=== PATIENT | female | born 1955 | race Caucasian/White ===

== ENCOUNTER → 2016-09-20 | Outpatient (CLI) | payer OTHER ==
[~2016-09-20] MED LIST: CLX20 PO; GABA-113 PO
[2016-09-20 09:33] LABS: BASO % 0.5 %; BASO ABS # 0.03 K/uL (0-0.2); COMPLETE YES; EOS % 4.4 %; HEMATOCRIT 40.6 % (37-47); IG% 0.7 %; LYMPH % 23.7 %; LYMPH ABS # 1.34 K/uL (1.2-3.4); MEAN CELL VOLUME 86.8 fL (80-100); MEAN CORPUSCULAR HEMOGLOBIN 29.9 pg (25-34); MEAN CORPUSCULAR HGB CONC 34.5 g/dl (32-36); MEAN PLATELET VOLUME 10.2 fL (7.4-10.4); NEUT % 62.7 %; PLATELET COUNT 231 K/uL (130-400); RED BLOOD COUNT 4.68 M/uL (4.2-5.4); WHITE BLOOD COUNT 5.66 K/uL (4.8-10.8)
[2016-09-20 10:04] LABS: ALT/SGPT 20 U/L (12-78); BLOOD UREA NITROGEN 26 mg/dl (7-18); BUN/CREATININE RATIO 32.9 (10-20); CARBON DIOXIDE 26 mmol/L (21-32); CHLORIDE 109 mmol/L (98-107); CHOLESTEROL 167 mg/dl (0-200); CREATININE 0.79 mg/dl (0.60-1.20); GLUCOSE 90 mg/dl (70-99); POTASSIUM 4.1 mmol/L (3.5-5.1); SODIUM 146 mmol/L (136-145); TRIGLYCERIDES 70 mg/dl (0-150); VERY LOW DENSITY LIPOPROT CALC 14 mg/dl
[2016-09-20 10:14] LABS: ALB/GLOB RATIO 1.4 (0.9-2); ALKALINE PHOSPHATASE 103 U/L (45-117); AST/SGOT 16 U/L (15-37); CHOLESTEROL/HDL RATIO 3.3; FERRITIN 50.1 ng/ml (8.0-388.0); HDL CHOLESTEROL 51 mg/dl; LDL CHOLESTEROL CALCULATED 102 mg/dl
== END | disposition home or self-care (01) ==
LOC: C.LAB 06:19
PROVIDERS: ATTEND Family Medicine
DX: N20.0 Calculus of kidney (principal); Z13.220 Encounter for screening for lipoid disorders; G25.81 Restless legs syndrome; E55.9 Vitamin D deficiency, unspecified

== ENCOUNTER 2017-08-24 08:50 | Emergency (ER) | payer OTHER ==
[~2017-08-24] VITALS: Ht 160 cm; Wt 76.2 kg
[2017-08-24 08:56] VITALS: TEMP 36.9; Ht 160 cm; Wt 76.2 kg
[2017-08-24] MEDS ORDERED: CITA20TA4 PO (09:15)
[2017-08-24] MEDS ORDERED: ROPI0.5T15 PO (09:15)
[2017-08-24] MEDS ORDERED: ERYTHROMYCIN OP OINT 5 MG/GM 3.5 GM TUBE OP ONE (09:45)
[2017-08-24 09:51] VITALS: BP 125/66; PULSE 73; O2SAT 95
--- NOTE | 2017-08-24 17:22 | EMERGENCY ROOM VISIT NOTE ---
History First contact with patient: : Chief Complaint: EYE ASSESSMENT Stated Complaint: DOUBLE EYE INFECTION History of Present Illness The patient is a 61 year old white female who presents to the Emergency Room with complaints of redness and itching of both eyes. It has an present for several days. She denies any pain. She has noted increasing swelling in her eyelids. She denies contact with any makeup. No known chemical exposure. She denies putting anything around her eyes such as new facial cream. No change in vision. No other complaints. Her accompanies her today. Denies any tearing or drainage. Review of Systems REVIEW OF SYSTEM: HEENT: No dizziness, hearing loss, or tinnitus. There is no difficulty swallowing and no oral lesions are present. PULMONARY: No cough, shortness of breath, sputum production or hemoptysis. CARDIOVASCULAR: No chest pain, palpitations, shortness of breath or peripheral edema. GASTROINTESTINAL: No diarrhea, constipation, nausea, vomiting, or abdominal pain. GENITOURINARY: No dysuria, frequency, urgency or nocturia. NEUROLOGIC: No weakness, muscle tenderness, epilepsy or history of neurological problems. MUSCULOSKELETAL: No history of joint tenderness/swelling. No history of arthritis or arthralgias. SKIN: No rashes or lesions. ENDOCRINE: No history of diabetes, thyroid disorders, or abnormal hair growth. Past Medical/Surgical History Previous surgeries: None Medical history: Significant for anxiety and restless legs Family History Noncontributory. Social History Smoking Status: Never Smoker Smokeless Tobacco Use: No Alcohol Use: none Drug Use: none Marital Status: Housing Status: lives with family Occupation Status: employed Current/Historical Medications Scheduled Citalopram Hydrobromide (Citalopram Hydrobromide), 20 MG PO DAILY Gabapentin (Neurontin), 150 MG PO BID Ropinirole (Requip), 0.5 MG PO TID Physical Exam Vital Signs Date Time Temp Pulse Resp B/P (MAP) Pulse Ox O2 Delivery O2 Flow Rate FiO2 08/24/17 09:51 73 16 125/66 95 Room Air 08/24/17 08:56 36.9 82 18 112/72 95 Room Air Physical Exam Gen.: Well-developed, well-nourished, middle-aged white female, in no acute distress. Sitting on a bed. Alert and oriented. Skin:Warm and dry with good turgor. Mild redness present on her upper and lower eyelids. They're also mildly edematous bilaterally. No ecchymosis. The patient is not diaphoretic. No abrasions. HEENT: Normocephalic atraumatic. Eyes PERRLA, EOMI. No conjunctiva or scleral injection. Nares patent bilaterally without turbinate enlargement. No significant drainage. No epistaxis. Oropharynx without erythema or exudate. Uvula midline, oral mucosa moist. No lesions present. Eyes were stained with fluorescein. Slit-lamp exam was performed. No uptake on the corneas. No evidence of foreign body. No drainage or mucopurulent crusting present. Medical Decision & Procedures Medications Administered Medications (Trade) Dose Ordered Sig/Dean Route Start Time Stop Time Status Last Admin Dose Admin Erythromycin (Erythromycin Oph Oint) 1 appln NOW ONCE OP 08/24/17 09:45 08/24/17 09:46 DC 08/24/17 09:49 1 APPLN Erythromycin ointment ED Course Patient was educated regarding today's findings. Conservative care measures were discussed. Slit-lamp exam was performed. She was reassured that I find no evidence for corneal abrasion or ulceration. No evidence for periorbital cellulitis. I think that she has a slight blepharitis. Possibility of allergic reaction was also discussed. He was prescribed erythromycin ointment to be used 3 times a day 4 days. She may also use Benadryl 25 mg every 6 hours and Zantac 150 mg once a day. This will help alleviate her itching and redness. Follow-up with her PCP as needed. Return to the ED for any worsening of symptoms. Medical Decision Possibility of blepharitis, corneal abrasion, corneal ulceration, conjunctivitis , and periorbital cellulitis was considered. Medication Reconcilliation Current Medication List: was personally reviewed by me Blood Pressure Screening Patient's blood pressure: Normal blood pressure Impression Primary Impression: Blepharitis of both eyes Departure Information Dispostion Home / Self-Care Condition GOOD Forms WORK / SCHOOL INSTRUCTIONS, HOME CARE DOCUMENTATION FORM, MOTRIN USE, TYLENOL USE, IMPORTANT VISIT INFORMATION Patient Instructions [facility], ED Inflammation Eyelid Additional Instructions Cool compresses to the eyes several times per day to reduce edema Apply erythromycin ointment to the eyelids 3 times a day 4 days Have your eyes reevaluated if pain develops or if significant drainage develops Tylenol and Motrin every 6 hours as needed for discomfort Benadryl 25 mg every 6 hours and Zantac 150 mg once a day will reduce redness and itching-take these until symptoms improve Avoid makeup on the eyelids until symptoms resolve
== END 2017-08-24 10:06 | disposition home or self-care (01) ==
LOC: C.EDB 08:52
DX: H01.006 Unspecified blepharitis left eye, unspecified eyelid (principal); H01.003 Unspecified blepharitis right eye, unspecified eyelid

== ENCOUNTER 2020-09-25 10:43 | Inpatient (IN) ==
[2020-09-25] MEDS ORDERED: REMDESIVIR 200 MG in SODIUM CHLORIDE 0.9% 210 ML IV STA (11:23)
[2020-09-25] MEDS ORDERED: SODIUM CHLORIDE 0.9% 1000ML 1,000 ML IV SCH (11:30)
[2020-09-25] MEDS ORDERED: SODIUM CHLORIDE 0.9% 10ML FLUSH IV SCH (11:30)
--- NOTE | 2020-09-25 11:34 | Emergency Department Note ---
History of Present Illness General Chief complaint: Illness Stated complaint: COVID +,SEVERE SOB Time Seen by Provider: 09/25/20 11:07 Source: patient Mode of arrival: ambulatory Limitations: no limitations History of Present Illness Provider complaint: Shortness of breath Maximum Pain Intensity: 3 This is a 65-year-old female who presents to the ED with a chief complaint of shortness of breath. The patient initially had symptoms about 8 or 9 days ago with loss of taste and smell as well as a cough. The patient's Covid test came up positive. She was seen a second time in the emergency department by myself about several days ago. At that time her oxygen saturations were fine. She states that last night she developed increased shortness of breath and difficulty in breathing. She came to the ED for reevaluation today. Her symptoms are worse with exertion. She denies any other complaints. Home Medications Medication Instructions Recorded Confirmed Type calcium carbonate [Calcium 600] 600 mg PO QAM 08/10/18 09/25/20 History citalopram 10 mg tablet 10 mg PO DAILY #30 tab 05/19/20 09/25/20 Rx ropinirole 1 mg tablet 1 mg PO BID #180 tab 05/19/20 09/25/20 Rx cholecalciferol (vitamin D3) 10 2,000 unit PO QAM #90 cap 05/25/20 09/25/20 Rx mcg (400 unit) capsule aspirin 81 mg PO DAILY 09/18/20 09/25/20 History dexamethasone 6 mg PO DAILY #6 tab 09/18/20 09/25/20 Rx acetaminophen [Tylenol Extra 1,000 mg PO Q6H PRN 09/21/20 09/25/20 History Strength] benzonatate [Tessalon Perles] 100 mg PO Q6H PRN #20 cap 09/21/20 09/25/20 Rx ibuprofen 400 mg PO Q6H PRN 09/21/20 09/25/20 History Allergies Allergy/AdvReac Type Severity Reaction Status Date / Time Penicillins Allergy Mild FEVER Verified 09/25/20 12:05 Past Med/Surg History Medical History Blepharitis of both eyes RESOLVED Depression Glaucoma Nephrolithiasis Restless leg syndrome Vitamin D deficiency Surgical History History of cataract surgery right History of dilatation and curettage History of right breast biopsy benign Family History Grandmother (Maternal) Diabetes Brother Diabetes Sister Diabetes Other No family history of adverse response to anesthesia Social History Smoking Status: Never smoker Second Hand Exposure: No (as a child); Hx Alcohol Use: No Hx Substance Use: No Preferred Language: Amharic Communication Ability: Effective Visual Impairment: Limited Hearing Ability: Normal Compressor Stations Superintendent Required: No Beliefs That Will Affect Care: None marital status: Current Living Situation: Spouse current occupational status: employed Feels Safe at Home: Yes Childhood Exposure to Second-Hand Smoke: Yes caffeine: Yes Dental Care, Regularly: No Physical Activity Frequency: Does not Exercise Seatbelt Use: always Sunscreen Use: No Assistive Devices: Glasses Review of Systems A total of 10 systems reviewed and were otherwise negative Physical Exam Vital Signs Vital Signs - 24 hr 09/25/20 10:48 Temperature 36.7 C Temperature Source Oral Pulse Rate 78 Pulse Rhythm Regular Pulse Strength Normal Respiratory Rate 24 Respiratory Effort / Characteristics Non-Labored Respiratory Depth Normal Respiratory Pattern Regular Blood Pressure 113/70 Blood Pressure Mean 84 Pulse Oximetry 86 L Oxygen Delivery Method Room Air Sepsis Recent Fever Within 48 Hours No Sepsis New/Unexplained Change in Mental Status N/A Sepsis Action Taken by Nursing No Action Required CONSTITUTIONAL/VITAL SIGNS: Reviewed / noted above. GENERAL: Non-toxic in appearance. INTEGUMENTARY: Warm, dry, and [place]. HEAD: Normocephalic. EYES: without scleral icterus or trauma. ENT/OROPHARYNX: clear and moist. LYMPHADENOPATHY/NECK: Is supple without lymphadenopathy or meningismus. RESPIRATORY: Lungs clear and equal. CARDIOVASCULAR: Regular rate and rhythm. GI/ABDOMEN: Soft and nontender. No organomegaly or pulsatile mass. No rebound or guarding. Normal bowel sounds. EXTREMITIES: Warm and well perfused. BACK: No CVA tenderness. NEUROLOGICAL: Intact without focal deficits. PSYCHIATRIC: normal affect. MUSCULOSKELETAL: Normally developed with good muscle tone. TRIAGE NURSING DOCUMENTATION REVIEWED. Course Administered Medications Dexamethasone 6 mg/ Syringe 1.5 mls @ 1 mls/min IV DAILY JULIO Stop: 10/05/20 11:29 Last Admin: 09/25/20 12:15 Dose: 1 mls/min Documented by: [id number] Discontinued Medications Sodium Chloride (Nss 1000ml) 1,000 mls @ 999 mls/hr IV .Q1H1M JULIO Stop: 09/25/20 12:30 Last Admin: 09/25/20 12:14 Dose: 999 mls/hr Documented by: [id number] Remdesivir 200 mg/ Sodium (Chloride) 250 mls @ 125 mls/hr IV ONE STA; Protocol Stop: 09/25/20 13:22 Last Admin: 09/25/20 12:15 Dose: 125 mls/hr Documented by: [id number] Medical Decision Making Differential Diagnosis The differential was considered includes acute myocardial infarction, acute coronary syndrome, myocarditis, pericarditis, pericardial effusions /tamponad, esophageal perforation, pulmonary embolism, pneumonia, pneumothorax, cardiomyopathy, congestive heart, anemia , COPD/asthma exacerbation. Medical Records Attestation: I reviewed the patient's medical records. Home Medications Current Medication List: was personally reviewed by me Laboratory Data Attestation: I reviewed the patient's lab results. Result diagrams: 09/25/20 11:41 09/25/20 11:41 Lab Results 09/25/20 09/25/20 09/25/20 Range/Units 11:41 11:41 11:41 WBC 7.96 (4.8-10.8) K/uL RBC 4.66 (4.2-5.4) M/uL Hgb 13.9 (12.0-16.0) g/dL Hct 40.9 (37-47) % MCV 87.8 (80-100) fL MCH 29.8 (25-34) pg MCHC 34.0 (32-36) g/dL RDW Std Deviation 41.2 (36.4-46.3) fL RDW Coeff of Rosa 12.9 (11.5-14.5) % Plt Count 233 (130-400) K/uL MPV 10.5 H (7.4-10.4) fL Neutrophils % (Manual) 88.6 % Lymphocytes % (Manual) 7.0 % Monocytes % (Manual) 2.6 % Metamyelocytes % (Man) 0.9 % Plasma Cell % (Manual) 0.9 % Neutrophils # (Manual) 7.05 H (1.4-6.5) K/uL Total Absolute Neuts 7.05 H (1.4-6.5) K/uL Lymphocytes # (Manual) 0.56 L (1.2-3.4) K/uL Total Abs Lymphocytes 0.63 L (1.2-3.4) K/uL Monocytes # (Manual) 0.21 (0.11-0.59) K/uL Metamyelocytes # (Man) 0.07 H (0-0) K/uL Plasma Cell # (Manual) 0.07 H (0-0) K/uL PT 10.9 (9.0-12.0) Seconds INR 1.0 (0.9-1.1) APTT 25.4 (21.0-31.0) Seconds PTT Ratio 0.9 Sodium 141 (136-145) mmol/L Potassium 3.4 L (3.5-5.1) mmol/L Chloride 105 (98-107) mmol/L Carbon Dioxide 28 (21-32) mmol/L Anion Gap 9.0 (3-11) BUN 25 H (7-18) mg/dl Creatinine 0.94 (0.6-1.2) mg/dl Est Cr Clr Drug Dosing 56.3 ml/min Est GFR ( Amer) 72.8 Est GFR (Non-Af Amer) 62.8 BUN/Creatinine Ratio 26.8 H (10-20) Glucose 136 H (70-99) mg/dl Lactate (0.4-2.0) mmol/L Calcium 9.6 (8.5-10.1) mg/dl Magnesium 2.4 (1.8-2.4) mg/dl Total Bilirubin 0.8 (0.2-1) mg/dl AST 60 H (15-37) U/L ALT 94 H (12-78) U/L Alkaline Phosphatase 77 (45-117) U/L Troponin I < 0.015 (0-0.045) ng/ml Total Protein 6.8 (6.4-8.2) gm/dl Albumin 2.8 L (3.4-5.0) gm/dl Globulin 4.0 (2.5-4.0) gm/dl Albumin/Globulin Ratio 0.7 L (0.9-2) 09/25/20 Range/Units 11:41 WBC (4.8-10.8) K/uL RBC (4.2-5.4) M/uL Hgb (12.0-16.0) g/dL Hct (37-47) % MCV (80-100) fL MCH (25-34) pg MCHC (32-36) g/dL RDW Std Deviation (36.4-46.3) fL RDW Coeff of Rosa (11.5-14.5) % Plt Count (130-400) K/uL MPV (7.4-10.4) fL Neutrophils % (Manual) % Lymphocytes % (Manual) % Monocytes % (Manual) % Metamyelocytes % (Man) % Plasma Cell % (Manual) % Neutrophils # (Manual) (1.4-6.5) K/uL Total Absolute Neuts (1.4-6.5) K/uL Lymphocytes # (Manual) (1.2-3.4) K/uL Total Abs Lymphocytes (1.2-3.4) K/uL Monocytes # (Manual) (0.11-0.59) K/uL Metamyelocytes # (Man) (0-0) K/uL Plasma Cell # (Manual) (0-0) K/uL PT (9.0-12.0) Seconds INR (0.9-1.1) APTT (21.0-31.0) Seconds PTT Ratio Sodium (136-145) mmol/L Potassium (3.5-5.1) mmol/L Chloride (98-107) mmol/L Carbon Dioxide (21-32) mmol/L Anion Gap (3-11) BUN (7-18) mg/dl Creatinine (0.6-1.2) mg/dl Est Cr Clr Drug Dosing ml/min Est GFR ( Amer) Est GFR (Non-Af Amer) BUN/Creatinine Ratio (10-20) Glucose (70-99) mg/dl Lactate 3.7 H* (0.4-2.0) mmol/L Calcium (8.5-10.1) mg/dl Magnesium (1.8-2.4) mg/dl Total Bilirubin (0.2-1) mg/dl AST (15-37) U/L ALT (12-78) U/L Alkaline Phosphatase (45-117) U/L Troponin I (0-0.045) ng/ml Total Protein (6.4-8.2) gm/dl Albumin (3.4-5.0) gm/dl Globulin (2.5-4.0) gm/dl Albumin/Globulin Ratio (0.9-2) Imaging Data Radiologist's Impression: XR chest 1V portable CLINICAL HISTORY: Sepsis. COMPARISON STUDY: Chest radiograph September 18, 2020. FINDINGS: Lung volumes are normal. There is no pneumothorax or pleural effusion. Moderate multifocal bilateral airspace opacities are present. Enlargement of the cardiac silhouette is noted. No evidence for pulmonary edema. IMPRESSION: Moderate multifocal bilateral airspace opacities consistent with an infectious process. ECG Data Attestation: I personally reviewed and interpreted this ECG as follows: Indication: + weakness Rate (beats per minute): 67 Rhythm: + normal sinus ECG ST segments: no ST elevation ECG Findings: no PVCs MDM Narrative Patient presents with increased shortness of breath and was diagnosed with Covid about a week or so ago. She is found today to be hypoxic on room air with oxygen saturations of 86%. Vital signs are otherwise stable. Her exam was relatively unremarkable. She does not appear to be in any distress while resting in bed. Lungs are clear on auscultation. Chest x-ray is suggestive of a bilateral pneumonia. Twelve-lead EKG shows a normal sinus rhythm at 67 without ischemic changes. CBC was unremarkable. Chemistry panel was unremar kable. Lactate was elevated 3.7. Troponin is negative. The patient was treated with IV fluids, IV remdesivir as well as IV Decadron. She will be seen by the hospitalist for further inpatient evaluation and care. Impression & Plan Hypoxia, COVID-19 Discharge Plan Visit Data Chief Complaint: Illness Stated Complaint: COVID +,SEVERE SOB ED Provider: Rio Macario Discharge Problem: Hypoxia, COVID-19 Patient Disposition: Admitted As Inpatient Forms Stand Alone Forms: My [facility] [employer] Prescriptions Prescriptions: No Action cholecalciferol (vitamin D3) [Vitamin D3] 10 mcg (400 unit) capsule 2,000 unit PO QAM Qty: 90 RF: 3 ropinirole 1 mg tablet 1 mg PO BID Qty: 180 RF: 3 citalopram 10 mg tablet 10 mg PO DAILY Qty: 30 RF: 2 calcium carbonate [Calcium 600] 600 mg calcium (1,500 mg) Tablet 600 mg PO QAM RF: 0 aspirin 81 mg Tablet,Delayed Release (Dr/Ec) 81 mg PO DAILY RF: 0 dexamethasone 6 mg tablet 6 mg PO DAILY Qty: 6 RF: 0 acetaminophen [Tylenol Extra Strength] 500 mg Tablet 1,000 mg PO Q6H PRN (Reason: fever/pain) RF: 0 ibuprofen 200 mg Tablet 400 mg PO Q6H PRN (Reason: fever/pain) RF: 0 benzonatate [Tessalon Perles] 100 mg capsule 100 mg PO Q6H PRN (Reason: cough) Qty: 20 RF: 0 Referrals Referrals: Stanley Coleman DO [Primary Care Provider] -
[2020-09-25 11:58] LABS: Hematocrit (blood only) 40.9 % (37-47); Hemoglobin 13.9 g/dL (12.0-16.0); Mean Corpuscular Hemoglobin 29.8 pg (25-34); Mean Corpuscular Volume 87.8 fL (80-100); Mean Platelet Volume 10.5 fL (7.4-10.4); Platelet Count 233 K/uL (130-400); RDW Coefficient of Variation 12.9 % (11.5-14.5); RDW Standard Deviation 41.2 fL (36.4-46.3); Red Blood Count 4.66 M/uL (4.2-5.4); White Blood Count 7.96 K/uL (4.8-10.8)
[2020-09-25 12:14] LABS: Partial Thromboplastin Ratio 0.9; Partial Thromboplastin Time 25.4 Seconds (21.0-31.0); Prothrombin Time 10.9 Seconds (9.0-12.0)
[2020-09-25] MEDS: dexAMETHasone 6 MG in SYRINGE 0 ML IV SCH (12:15)
[2020-09-25 12:16] LABS: ALC (manual) 0.63 K/uL (1.2-3.4); ANC (manual) 7.05 K/uL (1.4-6.5); Lymphocytes # (manual) 0.56 K/uL (1.2-3.4); Metamyelocytes # (manual) 0.07 K/uL (0-0); Metamyelocytes % (manual) 0.9 %; Monocytes # (manual) 0.21 K/uL (0.11-0.59); Monocytes % (manual) 2.6 %; Neutrophils # (manual) 7.05 K/uL (1.4-6.5); Neutrophils % (manual) 88.6 %; Plasma Cells # (manual) 0.07 K/uL (0-0); Plasma Cells % (manual) 0.9 %
[2020-09-25 12:17] LABS: Alanine Aminotransferase 94 U/L (12-78); Albumin Level 2.8 gm/dl (3.4-5.0); Aspartate Aminotransferase 60 U/L (15-37); BUN Creatinine Ratio 26.8 (10-20); Blood Urea Nitrogen 25 mg/dl (7-18); Calcium 9.6 mg/dl (8.5-10.1); Carbon Dioxide 28 mmol/L (21-32); Chloride 105 mmol/L (98-107); Creatinine Clr Calc Pharmacy 56.3 ml/min; Est GFR (African American) 72.8; Est GFR (Non-African American) 62.8; Glucose 136 mg/dl (70-99); Magnesium 2.4 mg/dl (1.8-2.4); Potassium 3.4 mmol/L (3.5-5.1); Sodium 141 mmol/L (136-145)
[2020-09-25 12:22] LABS: Albumin Globulin Ratio 0.7 (0.9-2); Alkaline Phosphatase 77 U/L (45-117); Bilirubin,Total 0.8 mg/dl (0.2-1); Total Protein 6.8 gm/dl (6.4-8.2); Troponin I < 0.015 ng/ml (0-0.045)
--- NOTE | 2020-09-25 12:36 | XRay Report ---
XR chest 1V portable CLINICAL HISTORY: Sepsis. COMPARISON STUDY: Chest radiograph September 18, 2020. FINDINGS: Lung volumes are normal. There is no pneumothorax or pleural effusion. Moderate multifocal bilateral airspace opacities are present. Enlargement of the cardiac silhouette is noted. No evidence for pulmonary edema. IMPRESSION: Moderate multifocal bilateral airspace opacities consistent with an infectious process. ACT 112: Negative or not required by law. Electronically signed by: Bill Sosa M.D. 09/25/2020 12:34 PM
--- NOTE | 2020-09-25 13:08 | History & Physical Report ---
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 - Will continue on remdesivir, tessalon pearls, tylenol prn, flutter, incentive spirometry - Continue supportive care with proning when able - CXR reviewed - showing multifocal bilateral airspace opacities - Isolation precautions- will need to discuss with the patient regarding her and how he should be quarantining herself - Continue Remdisivir 100 mg IV daily for 4 additional days (she received 200 mg dose in ER) - Continue Decadron 6 mg IV daily for 10 days - Consented for Convalescent Plasma, but will hold off at this time, as she is 10 days post initial symptoms (2) Hypoxia: - 86 % on room air upon admission, improved with supplemental O2, wean as able. (3) Hypokalemia: - 3.4 on admission, replace orally for now (4) Elevated transaminase level: - AST = 60, ALT = 94 (5) Blepharitis of both eyes: - Hx of such (6) Restless leg syndrome: - Hx of such, stable (7) Depression: - Cont citalopram 10 mg daily (8) Vitamin D deficiency: - Continue supplementation DVT ppx: lovenox subq CODE: FULL code Dispo: From home, likely to remain in the hospital x 2 days History of Present Illness Primary Care Provider: Stanley Coleman DO This is a 65 yo F with PMHx of nephrolithiasis, RLS, Vit D deficiency, depression and glaucoma, blepharitis of both eyes, who presents with worsening shortness of breath today. She was seen in the ER on 09/21/20 with flulike sx. She had been tested for COVID on 09/18 which was sent out, and resulted on 09/21 as positive and at that point was short of breath but not hypoxic. She was dis charged home from the ER after findings of pneumonia on CXR, and was given PO dexamethasone x 6 days and tessalon pearls for cough. She now presents today with worsening shortness of breath, fatigue, and was found to be hypoxic with O2 sats of 86% on room air. Pt has been placed on 3L via NC and has improved saturations in the 90s. Pt admits to cough but denies loss of taste or smell, fever, chills, myalgia. Allergies Allergy/AdvReac Type Severity Reaction Status Date / Time Penicillins Allergy Mild FEVER Verified 09/25/20 12:05 Home Medications Medication Instructions Recorded Confirmed Type calcium carbonate [Calcium 600] 600 mg PO QAM 08/10/18 09/25/20 History citalopram 10 mg tablet 10 mg PO DAILY #30 tab 05/19/20 09/25/20 Rx ropinirole 1 mg tablet 1 mg PO BID #180 tab 05/19/20 09/25/20 Rx cholecalciferol (vitamin D3) 10 2,000 unit PO QAM #90 cap 05/25/20 09/25/20 Rx mcg (400 unit) capsule aspirin 81 mg PO DAILY 09/18/20 09/25/20 History dexamethasone 6 mg PO DAILY #6 tab 09/18/20 09/25/20 Rx acetaminophen [Tylenol Extra 1,000 mg PO Q6H PRN 09/21/20 09/25/20 History Strength] benzonatate [Tessalon Perles] 100 mg PO Q6H PRN #20 cap 09/21/20 09/25/20 Rx ibuprofen 400 mg PO Q6H PRN 09/21/20 09/25/20 History Past Med/Surg History Medical History Blepharitis of both eyes RESOLVED Depression Glaucoma Nephrolithiasis Restless leg syndrome Vitamin D deficiency Surgical History History of cataract surgery right History of dilatation and curettage History of right breast biopsy benign Family History (Updated 09/25/20 @ 13:47 by Gerry Barcenas DO) Grandmother (Maternal) Diabetes Brother Diabetes Sister Diabetes Breast cancer Other No family history of adverse response to anesthesia Social History Smoking Status: Never smoker Second Hand Exposure: No (as a child); Hx Alcohol Use: No Hx Substance Use: No Preferred Language: Slovenian Communication Ability: Effective Visual Impairment: Limited Hearing Ability: Normal Director Epidemiology Required: No Beliefs That Will Affect Care: None marital status: Current Living Situation: Spouse current occupational status: employed Feels Safe at Home: Yes Childhood Exposure to Second-Hand Smoke: Yes caffeine: Yes Dental Care, Regularly: No Physical Activity Frequency: Does not Exercise Seatbelt Use: always Sunscreen Use: No Assistive Devices: Glasses Review of Systems Review of Systems: All systems reviewed & are unremarkable except as noted in HPI & below Physical Exam Constitutional: + ill appearing; no acute distress Eyes: + anicteric sclerae ENMT: external ear and nose normal, oropharynx normal Neck: trachea midline, no thyromegaly Respiratory: no respiratory distress and no labored breathing Auscultation: + crackles (bilateral bases) On supplemental oxygen via Nasal canula Cardiovascular: RRR, no murmur, no edema Gastrointestinal (Abdomen): normal bowel sounds, soft, nontender, no hepatosplenomegaly Skin: no rashes, warm and dry Psychiatric: A+Ox3, euthymic affect Results & Data Results & Data ([facility]) Vital Signs (Past 12 Hours) Vital Signs Temp Pulse Resp BP Pulse Ox 09/25/20 10:48 36.7 C 78 24 113/70 86 L Supervising Physician Co-Signing Physician Notes I have seen and examined the patient independently, and agree with the above noted plan by Ashley Buck, PAC ROS and PE are documented as above by myself as PA did not enter room due to COVID-19 Plan as above PG Care Time/CCT Total # of Minutes Spent Total Time Spent with Patient: Total time spent is greater than 50% in coordination of care (as documented) at patient's floor/unit and/or counseling patient: Coding Level of Care Code 48530 OBS Care - Level 3 Diagnoses COVID-19 U07.1 Hypoxia R09.02 Hypokalemia E87.6 Elevated transaminase level R74.01 Blepharitis of both eyes H01.003; H01.006 Restless leg syndrome G25.81 Depression F32.9 Vitamin D deficiency E55.9
--- NOTE | 2020-09-25 13:21 | Electrocardiogram Report ---
Test Reason : Blood Pressure : / mmHG Vent. Rate : 067 BPM Atrial Rate : 067 BPM P-R Int : 152 ms QRS Dur : 072 ms QT Int : 416 ms P-R-T Axes : 020 -09 075 degrees QTc Int : 439 ms Normal sinus rhythm Nonspecific ST abnormality Abnormal ECG When compared with ECG of 10-AUG-2018 12:42, No significant change was found Confirmed by Oswald Larkin ([id number]) on 09/25/2020 1:21:21 PM Referred By: [id number] Confirmed By:Oswald Larkin
[2020-09-25] MEDS ORDERED: POTASSIUM CHLORIDE CRTAB 20 MEQ TABCR PO STA (13:49)
[2020-09-25] MEDS ORDERED: BENZONATATE 100 MG CAPSULE PO PRN (14:39)
[2020-09-25] MEDS ORDERED: IBUPROFEN 200 MG TAB PO PRN (14:39)
[2020-09-25] MEDS ORDERED: ONDANSETRON INJ 2 MG/ML 2 ML VIAL IV PRN (14:39)
[2020-09-25] MEDS ORDERED: ACETAMINOPHEN 325 MG TAB PO PRN (14:42)
[2020-09-25] MEDS ORDERED: COUGH DROP (SUGAR FREE) LOZ 24 LOZ/1 BOX BUCCAL ONE (21:58)
[2020-09-25] MEDS: rOPINIRole HCL 1 MG TABLET PO SCH (22:03)
[2020-09-26 06:26] LABS: Hematocrit (blood only) 40.4 % (37-47); Hemoglobin 13.6 g/dL (12.0-16.0); Mean Corpuscular Hemoglobin 29.8 pg (25-34); Mean Corpuscular Hgb Conc 33.7 g/dL (32-36); Mean Corpuscular Volume 88.6 fL (80-100); Mean Platelet Volume 10.1 fL (7.4-10.4); Platelet Count 220 K/uL (130-400); RDW Coefficient of Variation 12.8 % (11.5-14.5); RDW Standard Deviation 41.4 fL (36.4-46.3); Red Blood Count 4.56 M/uL (4.2-5.4); White Blood Count 5.84 K/uL (4.8-10.8)
[2020-09-26 07:06] LABS: Albumin Level 2.6 gm/dl (3.4-5.0); BUN Creatinine Ratio 30.6 (10-20); Calcium 8.8 mg/dl (8.5-10.1); Creatinine Clr Calc Pharmacy 68.9 ml/min; Est GFR (African American) 94.1; Est GFR (Non-African American) 81.2; Potassium 4.2 mmol/L (3.5-5.1)
[2020-09-26 07:12] LABS: Albumin Globulin Ratio 0.7 (0.9-2); Bilirubin,Total 0.8 mg/dl (0.2-1); Globulin 3.7 gm/dl (2.5-4.0); Total Protein 6.3 gm/dl (6.4-8.2)
[2020-09-26] MEDS: CITALOPRAM 20 MG TAB PO SCH (08:23)
[2020-09-26] MEDS: dexAMETHasone 6 MG in SYRINGE 0 ML IV SCH (08:23)
[2020-09-26] MEDS: ASPIRIN 81 MG ECTAB PO SCH (08:24)
[2020-09-26] MEDS: CHOLECALCIFEROL 1,000 UNITS 25 MCG TAB PO SCH (08:24)
[2020-09-26] MEDS: rOPINIRole HCL 1 MG TABLET PO SCH ×2 (08:24→20:46)
[2020-09-26] MEDS: CALCIUM 600MG + VIT D 400 IU TAB PO SCH (08:25)
[2020-09-26] MEDS ORDERED: ENOXAPARIN INJ 40 MG/0.4 ML SYR SQ SCH (09:00)
[2020-09-26] MEDS: REMDESIVIR 100 MG in SODIUM CHLORIDE 0.9% 230 ML IV SCH (12:02)
[2020-09-26] MEDS: SODIUM CHLORIDE 0.9% 10ML FLUSH IV SCH (12:03)
[2020-09-26] MEDS ORDERED: FUROSEMIDE 20 MG TAB PO ONE (18:00)
--- NOTE | 2020-09-26 20:38 | Hospitalist Progress Note ---
Date of Service September 26, 2020 Assessment & Plan (1) Pneumonia due to 2019 novel coronavirus: clinically improving. day #2 dexamethasone 6mg daily with 10-day course planned. day #2 of 5 of remdesivir. plasma deferred at this time. increase lovenox to BID dosing for DVT proph. cont flutter valve, incentive, proning, etc. (2) Acute respiratory failure with hypoxia: clinically improving. see above. wean O2 as tolerated. (3) Elevated transaminase level: resolved. was likely 2nd to COVID-19. (4) Restless leg syndrome: cont home meds (5) Depression: cont home meds (6) DVT prophylaxis: increase lovenox to BID dosing lasix 20mg po x 1 for LE edema updated by phone today Admission and Anticipated Discharge Date Admission Date: September 25, 2020 Subjective tele overnight wnl patient reports feeling better on a general scale today still coughing and still having TURNER but overall feels better appetite improving no dyspnea at rest no fevers denies vomiting/diarrhea Review of Systems Constitutional: + fatigue; no fever and no chills Respiratory: no wheezing Cardiovascular: no chest pain Gastrointestinal: no abdominal pain, no nausea and no vomiting Physical Exam Constitutional: well developed and well nourished; no acute distress and no altered mental status ENMT: external ear and nose normal, oropharynx normal Respiratory: no respiratory distress Auscultation: + diminished lung sounds (Bases) and + rales; no wheezes Cardiovascular: Rate/Rhythm: regular rate and regular rhythm Heart Sounds: normal S1 and normal S2; no murmur Vessels: posterior tibial pulses present and dorsalis pedis pulses present; no JVD Extremities: + edema (<1+ b/l ) Gastrointestinal (Abdomen): normal bowel sounds, soft, nontender, no hepatosplenomegaly Psychiatric: A+Ox3, euthymic affect Results & Data Results & Data ([facility]) Vital Signs (Past 12 Hours) Vital Signs Temp Pulse Resp BP Pulse Ox Pulse Ox 09/26/20 19:59 36.9 C 70 18 121/64 90 09/26/20 16:00 92 09/26/20 14:38 36.5 C 70 18 111/51 L 94 09/26/20 11:26 67 18 107/59 L 95 09/26/20 11:24 93 Laboratory Results Laboratory Results - last 24 hr 09/26/20 09/26/20 06:13 06:13 WBC 5.84 RBC 4.56 Hgb 13.6 Hct 40.4 MCV 88.6 MCH 29.8 MCHC 33.7 RDW Std Deviation 41.4 RDW Coeff of Rosa 12.8 Plt Count 220 MPV 10.1 Sodium 141 Potassium 4.2 D Chloride 108 H Carbon Dioxide 30 Anion Gap 3.0 BUN 23 H Creatinine 0.76 Est Cr Clr Drug Dosing 68.9 Est GFR ( Amer) 94.1 Est GFR (Non-Af Amer) 81.2 BUN/Creatinine Ratio 30.6 H Glucose 105 H Calcium 8.8 Total Bilirubin 0.8 AST 31 ALT 75 Alkaline Phosphatase 68 Total Protein 6.3 L Albumin 2.6 L Globulin 3.7 Albumin/Globulin Ratio 0.7 L PG Care Time/CCT Total # of Minutes Spent Total Time Spent with Patient: Total time spent is greater than 50% in coordination of care (as documented) at patient's floor/unit and/or counseling patient: Coding Level of Care Code 29493 Subseq Hosp Care Lvl 2 Diagnoses Pneumonia due to 2019 novel coronavirus U07.1; J12.82 Acute respiratory failure with hypoxia J96.01 Elevated transaminase level R74.01 Restless leg syndrome G25.81 Depression F32.9 DVT prophylaxis Z29.9
[2020-09-26] MEDS: ENOXAPARIN INJ 40 MG/0.4 ML SYR SQ SCH (20:58)
[2020-09-27 07:36] LABS: D Dimer 3580 ug/L FEU (0-500)
[2020-09-27] MEDS: dexAMETHasone 6 MG in SYRINGE 0 ML IV SCH (07:53)
[2020-09-27 07:54] LABS: BUN Creatinine Ratio 33.4 (10-20); Calcium 9.3 mg/dl (8.5-10.1); Est GFR (African American) 91.2; Est GFR (Non-African American) 78.7; Potassium 3.8 mmol/L (3.5-5.1)
[2020-09-27] MEDS: CITALOPRAM 20 MG TAB PO SCH (07:54)
[2020-09-27] MEDS: ASPIRIN 81 MG ECTAB PO SCH (07:54)
[2020-09-27] MEDS: CALCIUM 600MG + VIT D 400 IU TAB PO SCH (07:55)
[2020-09-27] MEDS: CHOLECALCIFEROL 1,000 UNITS 25 MCG TAB PO SCH (07:55)
[2020-09-27] MEDS: rOPINIRole HCL 1 MG TABLET PO SCH ×2 (07:56→20:00)
[2020-09-27] MEDS: ENOXAPARIN INJ 40 MG/0.4 ML SYR SQ SCH ×2 (08:50→20:00)
[2020-09-27] MEDS: REMDESIVIR 100 MG in SODIUM CHLORIDE 0.9% 230 ML IV SCH (11:29)
[2020-09-27] MEDS: SODIUM CHLORIDE 0.9% 10ML FLUSH IV SCH (13:30)
[2020-09-27] MEDS: MELATONIN 3 MG TAB PO SCH (20:00)
--- NOTE | 2020-09-27 22:51 | Hospitalist Progress Note ---
Date of Service September 27, 2020 Assessment & Plan (1) Pneumonia due to 2019 novel coronavirus: clinically improving/resolving. day #3 dexamethasone 6mg daily with 10-day course planned. day #3 of 5 of remdesivir. plasma deferred at time of admission. cont lovenox BID dosing for DVT proph. cont flutter valve, incentive, proning, etc. I am pleased with her progress. (2) Acute respiratory failure with hypoxia: clinically improving/resolving. see above. hopefully she is able to stay off oxygen overnight tonight. (3) Elevated transaminase level: resolved. was likely 2nd to COVID-19. (4) Restless leg syndrome: cont home meds (5) Depression: cont home meds (6) D-dimer, elevated: 3580. 2nd to COVID-19 infection & inflammatory response. no pleuritic chest pain or other overt signs of VTE. defer on dopplers of legs or CTA at this time. (7) DVT prophylaxis: lovenox BID dosing updated by phone yesterday & today PT/OT notes reviewed - did excellent; will not need rehab or therapy post-d/c Admission and Anticipated Discharge Date Admission Date: September 25, 2020 Subjective During the visit the patient was satting in the low-mid 90s in room air. Nursing had weaned her O2 off just before my arrival. She reported feeling well with improved appetite and overall just feeling better. Still with mild cough and mild TURNER but no pleuritic chest pain. Denied family h/o DVT/PE. Tele overnight with NSR. Ambulating in room. Did well with PT yesterday. Review of Systems Constitutional: + weakness; no fever and no chills Respiratory: + cough and + dyspnea on exertion Cardiovascular: no chest pain and no edema Gastrointestinal: no abdominal pain, no vomiting and no diarrhea/loose stools Physical Exam Constitutional: well developed and well nourished; no acute distress and no altered mental status looks much better today ENMT: external ear and nose normal, oropharynx normal Respiratory: no respiratory distress Auscultation: + diminished lung sounds (Bases); no rales and no wheezes Cardiovascular: Rate/Rhythm: regular rate and regular rhythm Heart Sounds: normal S1 and normal S2; no murmur Vessels: posterior tibial pulses present and dorsalis pedis pulses present; no JVD Extremities: no edema Gastrointestinal (Abdomen): normal bowel sounds, soft, nontender, no hepatosplenomegaly Psychiatric: A+Ox3, euthymic affect Results & Data Results & Data ([facility]) Vital Signs (Past 12 Hours) Vital Signs Temp Pulse Pulse Resp BP Pulse Ox Pulse Ox 09/27/20 20:55 37.2 C 74 25 H 122/57 L 92 09/27/20 16:51 57 L 09/27/20 16:48 37 C 72 18 111/58 L 96 09/27/20 16:00 98 09/27/20 12:08 36.6 C 66 20 100/53 L 98 09/27/20 11:00 98 Laboratory Results Laboratory Results - last 24 hr 09/27/20 09/27/20 06:43 06:43 D-Dimer 3580 H* Sodium 142 Potassium 3.8 Chloride 107 Carbon Dioxide 29 Anion Gap 6.0 BUN 26 H Creatinine 0.78 Est Cr Clr Drug Dosing 67.0 Est GFR ( Amer) 91.2 Est GFR (Non-Af Amer) 78.7 BUN/Creatinine Ratio 33.4 H Glucose 86 Calcium 9.3 AST 19 ALT 60 PG Care Time/CCT Total # of Minutes Spent Total Time Spent with Patient: Total time spent is greater than 50% in coordination of care (as documented) at patient's floor/unit and/or counseling patient: Coding Level of Care Code 08001 Subseq Hosp Care Lvl 2 Diagnoses Pneumonia due to 2019 novel coronavirus U07.1; J12.82 Acute respiratory failure with hypoxia J96.01 Elevated transaminase level R74.01 Restless leg syndrome G25.81 Depression F32.9 D-dimer, elevated R79.89 DVT prophylaxis Z29.9
[2020-09-28 07:56] LABS: BUN Creatinine Ratio 32.3 (10-20); Calcium 9.7 mg/dl (8.5-10.1); Creatinine Clr Calc Pharmacy 61.5 ml/min; Est GFR (African American) 82.2; Est GFR (Non-African American) 70.9; Potassium 4.8 mmol/L (3.5-5.1)
[2020-09-28] MEDS: CALCIUM 600MG + VIT D 400 IU TAB PO SCH (09:00)
[2020-09-28] MEDS: CITALOPRAM 20 MG TAB PO SCH (09:00)
[2020-09-28] MEDS: ASPIRIN 81 MG ECTAB PO SCH (09:02)
[2020-09-28] MEDS: ENOXAPARIN INJ 40 MG/0.4 ML SYR SQ SCH ×2 (09:02→19:59)
[2020-09-28] MEDS: rOPINIRole HCL 1 MG TABLET PO SCH ×2 (09:03→19:59)
[2020-09-28] MEDS: CHOLECALCIFEROL 1,000 UNITS 25 MCG TAB PO SCH (09:03)
[2020-09-28] MEDS: dexAMETHasone 6 MG in SYRINGE 0 ML IV SCH (09:43)
[2020-09-28] MEDS: REMDESIVIR 100 MG in SODIUM CHLORIDE 0.9% 230 ML IV SCH (12:24)
[2020-09-28] MEDS: SODIUM CHLORIDE 0.9% 10ML FLUSH IV SCH (13:50)
[2020-09-28] MEDS: MELATONIN 3 MG TAB PO SCH (19:59)
--- NOTE | 2020-09-28 20:17 | Hospitalist Progress Note ---
Date of Service September 28, 2020 Assessment & Plan (1) Pneumonia due to 2019 novel coronavirus: clinically resolving; off NC O2 at rest x 30+ hours. day #4 dexamethasone 6mg daily with 10-day course planned. day #4 of 5 of remdesivir. plasma deferred at time of admission. cont lovenox BID dosing for DVT proph. cont flutter valve, incentive, proning, etc. Plan - last dose of remdesivir in am. 2-step ambulatory O2 test in am. can d/c home tomorrow on steroid taper. repeat dimer in am. (2) Acute respiratory failure with hypoxia: clinically resolved. see above. (3) Elevated transaminase level: resolved. was likely 2nd to COVID-19. (4) Restless leg syndrome: cont home meds (5) Depression: cont home meds (6) D-dimer, elevated: 3580. 2nd to COVID-19 infection & inflammatory response. no pleuritic chest pain or other overt signs of VTE. defer on dopplers of legs or CTA at this time. repeat dimer in am. if the dimer rises instead of decreasing consider PE w/u. (7) Insomnia: melatonin HS (8) DVT prophylaxis: lovenox BID dosing updated by phone yesterday & today - told him I anticipate d/c on Friday am PT/OT notes reviewed - did excellent; will not need rehab or therapy post-d/c Admission and Anticipated Discharge Date Admission Date: September 25, 2020 Subjective patient feeling very well. only complaint - TURNER during grooming activities this am. o2 sats dropped to 88%. during my visit she was sitting in chair comfortably - sats ranged 90-93% in room air. no cough. no dyspnea at rest. eating well. no impaired taste/smell. no cp, abd pain. no diarrhea. tele - NSR. Review of Systems Constitutional: no fever Respiratory: + dyspnea on exertion Cardiovascular: no chest pain and no orthopnea Gastrointestinal: no abdominal pain Psychiatric: + abnormal sleep pattern Physical Exam Constitutional: well developed and well nourished; no acute distress and no altered mental status ENMT: external ear and nose normal, oropharynx normal Respiratory: no respiratory distress Auscultation: + diminished lung sounds (Bases); no rales and no wheezes Cardiovascular: Rate/Rhythm: regular rate and regular rhythm Heart Sounds: normal S1 and normal S2; no murmur Vessels: posterior tibial pulses present and dorsalis pedis pulses present; no JVD Extremities: no edema Gastrointestinal (Abdomen): normal bowel sounds, soft, nontender, no hepatosplenomegaly Psychiatric: A+Ox3, euthymic affect Results & Data Results & Data ([facility]) Vital Signs (Past 12 Hours) Vital Signs Temp Pulse Pulse Resp BP Pulse Ox Pulse Ox 09/28/20 20:14 70 09/28/20 19:14 37.1 C 65 19 103/54 L 94 09/28/20 16:00 68 94 09/28/20 15:37 37.1 C 69 20 108/47 L 94 09/28/20 11:32 36.4 C L 68 20 97/46 L 96 09/28/20 10:46 95 Laboratory Results Laboratory Results - last 24 hr 09/28/20 06:41 Sodium 142 Potassium 4.8 D Chloride 106 Carbon Dioxide 32 Anion Gap 4.0 BUN 27 H Creatinine 0.85 Est Cr Clr Drug Dosing 61.5 Est GFR ( Amer) 82.2 Est GFR (Non-Af Amer) 70.9 BUN/Creatinine Ratio 32.3 H Glucose 96 Calcium 9.7 AST 16 ALT 53 PG Care Time/CCT Total # of Minutes Spent Total Time Spent with Patient: Total time spent is greater than 50% in coordination of care (as documented) at patient's floor/unit and/or counseling patient: Coding Level of Care Code 54696 Subseq Hosp Care Lvl 2 Diagnoses Pneumonia due to 2019 novel coronavirus U07.1; J12.82 Acute respiratory failure with hypoxia J96.01 Elevated transaminase level R74.01 Restless leg syndrome G25.81 Depression F32.9 D-dimer, elevated R79.89 Insomnia G47.00 DVT prophylaxis Z29.9
[2020-09-29 07:28] LABS: D Dimer 2170 ug/L FEU (0-500)
[2020-09-29 07:46] LABS: BUN Creatinine Ratio 37.1 (10-20); Calcium 9.2 mg/dl (8.5-10.1); Creatinine Clr Calc Pharmacy 75.3 ml/min; Est GFR (African American) 103.9; Est GFR (Non-African American) 89.7
[2020-09-29] MEDS ORDERED: REMDESIVIR 100 MG in SODIUM CHLORIDE 0.9% 230 ML IV SCH (08:00)
[2020-09-29] MEDS ORDERED: dexAMETHasone 4 MG TAB PO SCH (09:00)
[2020-09-29] MEDS: CALCIUM 600MG + VIT D 400 IU TAB PO SCH (09:17)
[2020-09-29] MEDS: CITALOPRAM 20 MG TAB PO SCH (09:18)
[2020-09-29] MEDS: ENOXAPARIN INJ 40 MG/0.4 ML SYR SQ SCH (09:20)
[2020-09-29] MEDS: rOPINIRole HCL 1 MG TABLET PO SCH (09:20)
[2020-09-29] MEDS: ASPIRIN 81 MG ECTAB PO SCH (09:20)
[2020-09-29] MEDS: CHOLECALCIFEROL 1,000 UNITS 25 MCG TAB PO SCH (09:21)
[2020-09-29] MEDS: SODIUM CHLORIDE 0.9% 10ML FLUSH IV SCH (09:22)
--- NOTE | 2020-09-29 11:26 | Discharge Summary ---
Date of Service date of admission - September 25, 2020 date of discharge - September 29, 2020 Admission HPI Per Admitting Provider This is a 65 yo F with PMHx of nephrolithiasis, RLS, Vit D deficiency, depression and glaucoma, blepharitis of both eyes, who presents with worsening shortness of breath today. She was seen in the ER on 09/21/20 with flulike sx. She had been tested for COVID on 09/18 which was sent out, and resulted on 09/21 as positive and at that point was short of breath but not hypoxic. She was discharged home from the ER after findings of pneumonia on CXR, and was given PO dexamethasone x 6 days and tessalon pearls for cough. She now presents today with worsening shortness of breath, fatigue, and was found to be hypoxic with O2 sats of 86% on room air. Pt has been placed on 3L via NC and has improved saturations in the 90s. Pt admits to cough but denies loss of taste or smell, fever, chills, myalgia. Principal Diagnosis COVID-19 pneumonia Discharge Exam Constitutional well developed and well nourished; no acute distress and no altered mental status ENMT external ear and nose normal, oropharynx normal Respiratory no respiratory distress Auscultation: + diminished lung sounds (Bases); no rales and no wheezes Cardiovascular Rate/Rhythm: regular rate and regular rhythm Heart Sounds: normal S1 and normal S2; no murmur Vessels: posterior tibial pulses present and dorsalis pedis pulses present; no JVD Extremities: no edema Gastrointestinal (Abdomen) normal bowel sounds, soft, nontender, no hepatosplenomegaly Psychiatric A+Ox3, euthymic affect Discharge Data Allergies Allergy/AdvReac Type Severity Reaction Status Date / Time Penicillins Allergy Mild FEVER Verified 09/25/20 12:05 Consultations PT, OT Procedures Performed 2-step ambulatory O2 test - NO NEED for home O2 Hospital Course (1) Pneumonia due to 2019 novel coronavirus: Completed 5 days of dexamethasone and a 5-day course of Remdesivir while hospitalized. Convalescent plasma was deferred. Twice daily lovenox was employed for VTE prophylaxis. She required NC O2 for most of her stay. Fortunately she clinically improved nicely during her hospitalization and her O2 was weaned off about 24 hours prior to discharge. 2-step ambulatory O2 test on day of discharge demonstrated no need for home O2. She will complete 5 more days of dexamethasone at home. Procalcitonin was negative and thus she did not receive antibiotics while hospitalized. D-dimer was elevated but PE was not suspected - see below. (2) Acute respiratory failure with hypoxia: 2nd to COVID-19 pneumonia - clinically resolved. see above. (3) Elevated transaminase level: Transient elevation of AST and ALT -- resolved. Was likely 2nd to COVID-19 infection. (4) Restless leg syndrome: cont home meds (5) Depression: cont home meds (6) D-dimer, elevated: Peak - 3580; improved to 2170. 2nd to COVID-19 infection & inflammatory response. No pleuritic chest pain or other overt signs of VTE while here. Dopplers of legs and CTA chest were deferred. She did receive twice daily lovenox for VTE prophylaxis throughout her stay. (7) Insomnia: melatonin HS Total Time Total Time Spent Total Time Spent (In Minutes): 35 Total Time Includes: Examination of the Patient, Discharge Planning and Medication Reconciliation Discharge Plan Discharge Items Patient Disposition: Home - Self-Care Reason For Visit: COVID-19 Pneumonia Discharge Diagnosis: COVID-19 Pneumonia - improving nicely Activity: As commented below Activity Comment: gradually increase your activities over the next 7-10 days as tolerated Bathing: No limitations Exercise/Sports: Wait until after follow-up appointment Driving/Machine Use: Resume 3 days after discharge Non-emergency contact: Primary Care Provider Call non-emergency contact if: you have any medication questions, your symptoms worsen and you have a fever Follow-up/Referrals: Stanley Coleman, [Primary Care Provider] - 10/04/20 11:30 am (Please follow up with Dr. Coleman via virtual/telehealth visit on Friday10/04/20 at 11:30 am. If you are unable to keep this virtual/telehealth visit, please call the office to reschedule at [phone].) Diet: Regular Addtl Attending Provider Instructions: Mrs Steiner, Fortunato were admitted and treated for COVID-19 pneumonia. You received 5 days of remdesivir treatment as well as 5 days of dexamethasone steroid. You improved with these measures and your oxygen was weaned off. On day of discharge we did an oxygen walking test and you passed! You do not need any oxygen for your home. Since it has been well over 10 days since the start of your illness you are unlikely to be contagious to others. You do NOT need to isolate at home any longer. You can leave your home (with mask on of course) but I would encourage you to limit trips outside your house for about 5-7 days as you continue to recover. Common symptoms after COVID-19 infection include some lingering cough, some lingering shortness of breath, fatigue, trouble sleeping, etc. Listen to your body during your recovery period and rest, take naps, etc as needed. Continue to sleep or rest on your belly during your recovery period and also continue the flutter valve for several more days. Drink plenty of fluids over the next 1-2 weeks as well. Medications - 1. dexamethasone steroid 6mg daily for 5 more days starting tomorrow. 2. nystatin solution 5ml FOUR times a day for 7 days; swish and spit. 3. take [id number] pepcid 20mg twice daily for 7 days. This will help protect your stomach while taking the steroid. Follow-up -- schedule a virtual visit with Dr Coelman within 5 days Handouts on COVID -- at your convenience please look through these COVID vaccine -- please speak to the vaccination program coordinators about when it is safe to receive your 2nd shot Return to work -- you may need 1-2 weeks or more of recovery at home before returning to work. Please contact your manager drug safety next week. Return to [facility] if -- * you have recurrent fevers over 100 degrees * you have worsening shortness of breath * you develop chest pain * any other concerns It was my pleasure caring for you! Good luck on your road to recovery! -Dr Villela Pending Studies at Discharge: No Stand-Alone Forms: My [facility], Smoking Cessation Medications and DC Order Prescriptions: New nystatin 100,000 unit/mL suspension 5 ml PO QID 7 Days Qty: 200 RF: 0 famotidine [Pepcid AC] 20 mg tablet 20 mg PO BID 7 Days Qty: 14 RF: 0 Continued cholecalciferol (vitamin D3) [Vitamin D3] 10 mcg (400 unit) capsule 2,000 unit PO QAM Qty: 90 RF: 3 ropinirole 1 mg tablet 1 mg PO BID Qty: 180 RF: 3 citalopram 10 mg tablet 10 mg PO DAILY Qty: 30 RF: 2 calcium carbonate [Calcium 600] 600 mg calcium (1,500 mg) Tablet 600 mg PO QAM RF: 0 aspirin 81 mg Tablet,Delayed Release (Dr/Ec) 81 mg PO DAILY RF: 0 acetaminophen [Tylenol Extra Strength] 500 mg Tablet 1,000 mg PO Q6H PRN (Reason: fever/pain) RF: 0 benzonatate [Tessalon Perles] 100 mg capsule 100 mg PO Q6H PRN (Reason: cough) Qty: 20 RF: 0 dexamethasone 6 mg tablet 6 mg PO DAILY 5 Days Qty: 5 RF: 0 Discontinued ibuprofen 200 mg Tablet 400 mg PO Q6H PRN (Reason: fever/pain) RF: 0 Discharge Orders: Discharge Order (Routine); Ordered 09/29/20 Ordered By: Ted Casas/Other Patient Handouts: 2019-nCoV, COVID-19 Home Care, COVID-19 Plasma Donation, Caring for Someone Who Has COVID-19, Disinfecting Your Home of COVID- 19, How COVID-19 Spreads Admission Data Admit Date/Time: 09/25/20 13:24 Attending Provider: Ted Villela Admit Provider: Gerry Barcenas Primary Care Provider: Stanley Coleman Other Interventions: Discharge Summary Assessment (RN) Last Done: 09/29/20 11:58 Coding Level of Care Code D/C Day Management >30 mins Diagnoses Pneumonia due to 2019 novel coronavirus U07.1; J12.82 Acute respiratory failure with hypoxia J96.01 Elevated transaminase level R74.01 Restless leg syndrome G25.81 Depression F32.9 D-dimer, elevated R79.89 Insomnia G47.00
== END 2020-09-29 12:15 | disposition home or self-care (01) | DRG 177 ==
LOC: ED 10:43 → 2E 13:24 → SUATTDRO 13:24 → 2E 14:40

== ENCOUNTER 2022-03-19 18:22 | Observation (INO) ==
[2022-03-19] MEDS ORDERED: ONDANSETRON INJ 2 MG/ML 2 ML VIAL IV STA (18:30)
[2022-03-19] MEDS ORDERED: MoRPHine SULFATE 4 MG/ML 1 ML CARP\\VIAL IV STA (18:30)
[2022-03-19] MEDS ORDERED: SODIUM CHLORIDE 0.9% 1000ML 1,000 ML IV ONE (18:36)
[2022-03-19] MEDS ORDERED: dilTIAZem HCl 5 MG/ML 5 ML VIAL IV STA (18:37)
--- NOTE | 2022-03-19 18:37 | Emergency Department Note ---
Impression & Plan Atrial fibrillation with RVR ADMIT ED Provider Note HPI: The patient is a 66-year-old female who presents the emergency department with a chief complaint of acute onset dizziness. 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 Patient denies any chest pain. States she does feel somewhat short of breath. On arrival to the ED the patient is initially with normal heart rate however on my assessment on the monitor she does jump into an irregular rhythm with a heart rate of 145 consistent with atrial fibrillation with RVR. She remained saturating well on room air throughout. ROS: -Neuro: Episode of dizziness -Pulmonary: Shortness of breath -Cardio: Palpitations *10 point review systems was conducted and is otherwise negative unless stated above *Outpatient medications and allergy history reviewed PE: General: Alert, NAD HEENT: Normocephalic, atraumatic Eyes: Extraocular eye movement is intact, no scleral erythema Pulmonary: Clear to auscultation bilaterally, no wheezing Cardio: Irregular rhythm with tachycardic rate GI: Abdomen is soft, nontender : No suprapubic tenderness MSK: No evidence of trauma or malformation of the extremities, no edema Skin: No evidence of rash Neuro: Alert, no focal deficits Psychiatric: Cooperative panel monitor: - An order was placed for continuous cardiac monitoring - Patient was noted to be in atrial fibrillation with a rate of 145 EKG #1: Rate: 108 Rhythm: Sinus tachycardia Intervals: Within normal limits Time: 1828 ST changes: No ST elevation EKG #2: Rate: 133 Rhythm: Atrial fibrillation with RVR Intervals: Within normal limits ST changes: No ST elevation Time: 1837 Medical Decision Making: Patient presented to the emergency department after experiencing an episode of dizziness, also associated with shortness of breath and palpitations. She is noted to be in new onset atrial fibrillation with RVR on the monitor. IV was established, lab work obtained, patient remained on cardiac specialist here in the ED. Lab work shows evidence of an elevated D-dimer, CT angiography was obtained that shows no evidence of PE. High-sensitivity troponin levels within normal limits. Patient denies any chest pain, on my reassessment she states she is feeling improved following dose of IV diltiazem in addition to a single dose of IV metoprolol. Heart rate responded to 100 on my reassessment and she remains in atrial fibrillation. Given that this is new, I did recommend admission to which the patient was in agreement, and the OR medical group hospitalist service was consulted for admission and the patient was admitted in stable condition for further care. * CRITICAL CARE TIME: ( 40 ) minutes -Stabilization of tachyarrhythmia requiring IV medications for rate control, interpretation of diagnostic studies including EKG, time spent at the bedside, discussion with other physicians/arrangement of admission Diagnosis: 1. Atrial fibrillation with RVR 2. New onset atrial fibrillation 3. Dizziness, transient 4. Palpitations 5. Dyspnea, acute Disposition: Admission Robi Oliveros DO Emergency Medicine Past Med/Surg History Medical History (Updated 03/19/22 @ 23:43 by Robi Oliveros DO) Blepharitis of both eyes RESOLVED COVID-19 Glaucoma Mood disorder Nephrolithiasis RLS (restless legs syndrome) Vitamin D deficiency Surgical History History of cataract surgery right History of dilatation and curettage History of right breast biopsy benign Family History Grandmother (Maternal) Diabetes Brother Diabetes Sister Diabetes Breast cancer Other No family history of adverse response to anesthesia Social History (Updated 05/22/21 @ 11:02 by Sonam Hankins) Smoking Status: Never smoker Second Hand Exposure: No; Hx Alcohol Use: No Hx Substance Use: No Preferred Language: Liberian Communication Ability: Effective Visual Impairment: Limited Hearing Ability: Normal 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 Dies Required: No Beliefs That Will Affect Care: None marital status: Current Living Situation: Spouse current occupational status: employed Other Information That Helps Us Care for You: No Feels Safe at Home: Yes Safety Concerns: Feels Safe At This Time Childhood Exposure to Second-Hand Smoke: Yes caffeine: Yes Dental Care, Regularly: No Physical Activity Frequency: Does not Exercise Seatbelt Use: always Sunscreen Use: Yes Do you think of yourself as: straight/heterosexual Assistive Devices: Glasses Allergies Allergies Allergy/AdvReac Type Severity Reaction Status Date / Time Penicillins Allergy Mild FEVER Verified 03/19/22 19:23 Home Meds Home Medications Medication Instructions Recorded Confirmed calcium carbonate 600 mg calcium 600 mg PO QAM 08/10/18 03/19/22 (1,500 mg) tablet (Calcium) aspirin 81 mg tablet,delayed 81 mg PO DAILY 09/18/20 03/19/22 release Previous Rx's Medication Instructions Recorded cholecalciferol (vitamin D3) 10 2,000 unit PO QAM #90 cap 05/25/20 mcg (400 unit) capsule (Vitamin D3) ropinirole 1 mg tablet 1 mg PO BID #180 tab 04/10/21 metoprolol tartrate 50 mg tablet 50 mg PO BID #180 tab 11/20/21 citalopram 10 mg tablet 10 mg PO DAILY #90 tab 11/30/21 atorvastatin 20 mg tablet 20 mg PO DAILY #90 tab 01/10/22 Results & Data (ED) Vital Signs Vital Signs - 24 hr 03/19/22 18:22 03/19/22 18:55 03/19/22 19:40 Temperature 37.0 C Temperature Source Oral Pulse Rate 152 H 98 H Pulse Rate [Apical] 100 H Pulse Rhythm Irregular Pulse Rhythm [Apical] Irregular Pulse Strength [Apical] Respiratory Rate 22 20 Respiratory Effort / Characteristics Non-Labored Spontaneous Non-Labored Spontaneous Respiratory Depth Normal Normal Respiratory Pattern Regular Regular Blood Pressure 164/139 H 119/68 Blood Pressure [Right Arm] 119/76 Blood Pressure Mean 147 Blood Pressure Mean [Right Arm] 90 Blood Pressure Position Sitting Blood Pressure Position [Right Arm] Sitting Pulse Oximetry 98 100 Oxygen Delivery Method Room Air Room Air Sepsis Recent Fever Within 48 Hours No Sepsis New/Unexplained Change in Mental Status No Sepsis Action Taken by Nursing No Action Required 03/19/22 19:46 03/19/22 19:59 03/19/22 20:00 Temperature Temperature Source Pulse Rate 116 H Pulse Rate [Apical] 97 H 103 H Pulse Rhythm Irregular Pulse Rhythm [Apical] Irregular Irregular Pulse Strength [Apical] Normal Normal Respiratory Rate 16 16 18 Respiratory Effort / Characteristics Non-Labored Spontaneous Non-Labored Spontaneous Respiratory Depth Normal Normal Respiratory Pattern Regular Regular Blood Pressure Blood Pressure [Right Arm] 138/63 170/71 H Blood Pressure Mean Blood Pressure Mean [Right Arm] 88 104 Blood Pressure Position Blood Pressure Position [Right Arm] Semi-fowlers Semi-fowlers Pulse Oximetry 97 98 97 Oxygen Delivery Method Room Air Room Air Room Air Sepsis Recent Fever Within 48 Hours Sepsis New/Unexplained Change in Mental Status Sepsis Action Taken by Nursing 03/19/22 20:15 03/19/22 20:30 03/19/22 20:45 Temperature Temperature Source Pulse Rate Pulse Rate [Apical] 107 H 115 H 110 H Pulse Rhythm Pulse Rhythm [Apical] Irregular Irregular Irregular Pulse Strength [Apical] Normal Normal Normal Respiratory Rate 16 16 16 Respiratory Effort / Characteristics Non-Labored Spontaneous Non-Labored Spontaneous Non-Labored Spontaneous Respiratory Depth Normal Normal Normal Respiratory Pattern Regular Regular Regular Blood Pressure Blood Pressure [Right Arm] 113/81 114/63 120/85 Blood Pressure Mean Blood Pressure Mean [Right Arm] 91 80 96 Blood Pressure Position Blood Pressure Position [Right Arm] Semi-fowlers Semi-fowlers Semi-fowlers Pulse Oximetry 97 96 97 Oxygen Delivery Method Room Air Room Air Room Air Sepsis Recent Fever Within 48 Hours Sepsis New/Unexplained Change in Mental Status Sepsis Action Taken by Nursing Laboratory Data Result diagrams: 03/19/22 16:29 03/19/22 16:29 Lab Results 03/19/22 03/19/22 03/19/22 Range/Units 16:29 16:29 16:29 WBC 8.29 (4.8-10.8) K/uL RBC 4.74 (4.2-5.4) M/uL Hgb 14.3 (12.0-16.0) g/dL Hct 41.0 (37-47) % MCV 86.5 (80-100) fL MCH 30.2 (25-34) pg MCHC 34.9 (32-36) g/dL RDW Std Deviation 40.2 (36.4-46.3) fL RDW Coeff of Rosa 12.6 (11.5-14.5) % Plt Count 180 (130-400) K/uL MPV 10.1 (7.4-10.4) fL Immature Gran % (Auto) 0.4 % Neut % (Auto) 58.2 % Lymph % (Auto) 32.8 % Weld % (Auto) 6.4 % Eos % (Auto) 2.1 % Baso % (Auto) 0.1 % Neut # (Auto) 4.83 (1.4-6.5) K/uL Lymph # (Auto) 2.72 (1.2-3.4) K/uL Weld # (Auto) 0.53 (0.11-0.59) K/uL Eos # (Auto) 0.17 (0-0.5) K/uL Baso # (Auto) 0.01 (0-0.2) K/uL Immature Gran # (Auto) 0.03 H (0.00-0.02) K/uL PT 10.3 (9.0-12.0) Seconds INR 1.0 (0.9-1.1) APTT 31.5 H (21.0-31.0) Seconds PTT Ratio 1.1 D-Dimer 660 H* (0-500) ug/L FEU Sodium 142 (136-145) mmol/L Potassium 3.5 (3.5-5.1) mmol/L Chloride 104 (98-107) mmol/L Carbon Dioxide 29 (21-32) mmol/L Anion Gap 9 (3-11) BUN 25 H (6-23) mg/dl Creatinine 0.86 (0.6-1.2) mg/dl Est Cr Clr Drug Dosing Not Reportable Est GFR ( Amer) 80.5 ml/min Est GFR (Non-Af Amer) 69.4 ml/min BUN/Creatinine Ratio 29.1 H (10-20) Glucose 84 (70-99(Fasting)) mg/dl POC Glucose (70-99) mg/dl Calcium 9.9 (8.5-10.1) mg/dl Magnesium (1.7-2.4) mg/dl Total Bilirubin 0.8 (0.2-1.0) mg/dl AST 19 (13-39) U/L ALT 17 (7-52) U/L Alkaline Phosphatase 91 (34-104) U/L Troponin I High Sens 4.8 (0-14) pg/ml Total Protein 7.5 (6.0-8.3) gm/dl Albumin 4.7 (3.4-5.0) gm/dl Globulin 2.8 (2.5-4.0) gm/dl Albumin/Globulin Ratio 1.7 (0.9-2) Lipase 23 (11-82) U/L TSH (0.300-4.500) uIu/ml Free T4 (0.61-1.60) ng/dl SARS-CoV-2, RNA, NAAT (NEGATIVE) 03/19/22 03/19/22 03/19/22 Range/Units 16:29 16:29 18:30 WBC (4.8-10.8) K/uL RBC (4.2-5.4) M/uL Hgb (12.0-16.0) g/dL Hct (37-47) % MCV (80-100) fL MCH (25-34) pg MCHC (32-36) g/dL RDW Std Deviation (36.4-46.3) fL RDW Coeff of Rosa (11.5-14.5) % Plt Count (130-400) K/uL MPV (7.4-10.4) fL Immature Gran % (Auto) % Neut % (Auto) % Lymph % (Auto) % Weld % (Auto) % Eos % (Auto) % Baso % (Auto) % Neut # (Auto) (1.4-6.5) K/uL Lymph # (Auto) (1.2-3.4) K/uL Weld # (Auto) (0.11-0.59) K/uL Eos # (Auto) (0-0.5) K/uL Baso # (Auto) (0-0.2) K/uL Immature Gran # (Auto) (0.00-0.02) K/uL PT (9.0-12.0) Seconds INR (0.9-1.1) APTT (21.0-31.0) Seconds PTT Ratio D-Dimer (0-500) ug/L FEU Sodium (136-145) mmol/L Potassium (3.5-5.1) mmol/L Chloride (98-107) mmol/L Carbon Dioxide (21-32) mmol/L Anion Gap (3-11) BUN (6-23) mg/dl Creatinine (0.6-1.2) mg/dl Est Cr Clr Drug Dosing Est GFR ( Amer) ml/min Est GFR (Non-Af Amer) ml/min BUN/Creatinine Ratio (10-20) Glucose (70-99(Fasting)) mg/dl POC Glucose 84 (70-99) mg/dl Calcium (8.5-10.1) mg/dl Magnesium 2.1 (1.7-2.4) mg/dl Total Bilirubin (0.2-1.0) mg/dl AST (13-39) U/L ALT (7-52) U/L Alkaline Phosphatase (34-104) U/L Troponin I High Sens (0-14) pg/ml Total Protein (6.0-8.3) gm/dl Albumin (3.4-5.0) gm/dl Globulin (2.5-4.0) gm/dl Albumin/Globulin Ratio (0.9-2) Lipase (11-82) U/L TSH 11.056 H (0.300-4.500) uIu/ml Free T4 0.67 (0.61-1.60) ng/dl SARS-CoV-2, RNA, NAAT (NEGATIVE) 03/19/22 Range/Units 20:09 WBC (4.8-10.8) K/uL RBC (4.2-5.4) M/uL Hgb (12.0-16.0) g/dL Hct (37-47) % MCV (80-100) fL MCH (25-34) pg MCHC (32-36) g/dL RDW Std Deviation (36.4-46.3) fL RDW Coeff of Rosa (11.5-14.5) % Plt Count (130-400) K/uL MPV (7.4-10.4) fL Immature Gran % (Auto) % Neut % (Auto) % Lymph % (Auto) % Weld % (Auto) % Eos % (Auto) % Baso % (Auto) % Neut # (Auto) (1.4-6.5) K/uL Lymph # (Auto) (1.2-3.4) K/uL Weld # (Auto) (0.11-0.59) K/uL Eos # (Auto) (0-0.5) K/uL Baso # (Auto) (0-0.2) K/uL Immature Gran # (Auto) (0.00-0.02) K/uL PT (9.0-12.0) Seconds INR (0.9-1.1) APTT (21.0-31.0) Seconds PTT Ratio D-Dimer (0-500) ug/L FEU Sodium (136-145) mmol/L Potassium (3.5-5.1) mmol/L Chloride (98-107) mmol/L Carbon Dioxide (21-32) mmol/L Anion Gap (3-11) BUN (6-23) mg/dl Creatinine (0.6-1.2) mg/dl Est Cr Clr Drug Dosing Est GFR ( Amer) ml/min Est GFR (Non-Af Amer) ml/min BUN/Creatinine Ratio (10-20) Glucose (70-99(Fasting)) mg/dl POC Glucose (70-99) mg/dl Calcium (8.5-10.1) mg/dl Magnesium (1.7-2.4) mg/dl Total Bilirubin (0.2-1.0) mg/dl AST (13-39) U/L ALT (7-52) U/L Alkaline Phosphatase (34-104) U/L Troponin I High Sens (0-14) pg/ml Total Protein (6.0-8.3) gm/dl Albumin (3.4-5.0) gm/dl Globulin (2.5-4.0) gm/dl Albumin/Globulin Ratio (0.9-2) Lipase (11-82) U/L TSH (0.300-4.500) uIu/ml Free T4 (0.61-1.60) ng/dl SARS-CoV-2, RNA, NAAT NEGATIVE (NEGATIVE) Administered Medications Discontinued Medications Diltiazem HCl (Diltiazem Hcl 5 Mg/Ml 5 Ml Vial) 10 mg IV NOW STA Stop: 03/19/22 18:38 Last Admin: 03/19/22 18:40 Dose: 10 mg Documented by: [id number] Cosigned by: [id number] Diltiazem HCl (Diltiazem Hcl 5 Mg/Ml 5 Ml Vial) Confirm Administered Dose 25 mg IV .STK-MED ONE Stop: 03/19/22 18:39 Last Admin: 03/19/22 18:40 Dose: Not Given Documented by: [id number] Sodium Chloride (Nss 1000ml) 1,000 mls @ 999 mls/hr IV .Q1H1M ONE Stop: 03/19/22 19:36 Last Infusion: 03/19/22 19:46 Dose: 0 mls/hr Documented by: [id number] Admin: 03/19/22 18:40 Dose: 999 mls/hr Documented by: [id number] Ioversol (Optiray 320 125ml) 120 ml IV ONCE ONE Stop: 03/19/22 19:27 Last Admin: 03/19/22 19:27 Dose: 120 ml Documented by: [id number] Metoprolol Tartrate (Metoprolol Tartrate 1 Mg/Ml Vial) 5 mg IV NOW STA Stop: 03/19/22 19:37 Last Admin: 03/19/22 19:40 Dose: 5 mg Documented by: [id number] Morphine Sulfate (Morphine Sulfate 4 Mg/Ml 1 Ml Carp\\Vial) 4 mg IV NOW STA Stop: 03/19/22 18:31 Last Admin: 03/19/22 18:57 Dose: Not Given Documented by: [id number] Ondansetron HCl (Ondansetron Inj 2 Mg/Ml 2 Ml Vial) 4 mg IV NOW STA Stop: 03/19/22 18:31 Last Admin: 03/19/22 18:57 Dose: Not Given Documented by: [id number] Potassium Chloride (Potassium Chloride Crtab 20 Meq Tabcr) 40 meq PO NOW STA Stop: 03/19/22 21:03 Last Admin: 03/19/22 21:25 Dose: 40 meq Documented by: [id number] Imaging Data Radiologist's Impression: Chest X-Ray 03/19/22 18:30 XR chest 1V portable CLINICAL HISTORY: Chest Pain. COMPARISON STUDY: 10/24/2020 TECHNIQUE: 1 view of the chest FINDINGS: Single frontal view of the chest demonstrates the heart to be mildly enlarged. There is a decreased inspiratory effort with elevation of the hemidiaphragms and crowding of the bronchovascular markings at the lung bases and centrally. The lungs are clear of alveolar opacities. There is no evidence for pleural effusion. There is no evidence for vascular congestion. There is no acute osseous pathology. IMPRESSION: 1. There is a decreased inspiratory effort with otherwise no acute chest disease. ACT 112: Negative or not required by law. Electronically signed by: Abdullahi Fuentes M.D. 03/19/2022 6:42 PM Chest CTA 03/19/22 19:00 CT angio chest PE protocol CLINICAL HISTORY: Rapid atrial fibrillation COMPARISON STUDY: Portable chest from 03/19/2022 CT DOSE: 298.43 mGy.cm TECHNIQUE: CT Angio of the chest was performed.followed by image post processing with coronal, and sagittal MIP reformats. Contrast Volume: Optiray 320, 120 ml FINDINGS: Vasculature: There is homogeneous perfusion of the pulmonary vasculature bilater ally. No intraluminal filling defects or evidence for pulmonary embolus is seen. Airway: The airway is clear. No endobronchial lesion is identified. Lungs: The lungs are clear of acute alveolar opacities, air bronchograms or pulmonary nodules. Pleura: There is no evidence for pleural effusion. There is no evidence for pneumothorax. Mediastinum: There is no evidence for pathologic adenopathy. The heart size is within normal limits. The thoracic aorta is within normal limits. There is no evidence for pericardial effusion. Upper abdomen:The adrenal glands are normal bilaterally. Osseous structures: There is no acute osseous pathology. Impression: 1. No CTA evidence for pulmonary embolus. 2. No acute chest disease. ACT 112: Negative or not required by law. Electronically signed by: Abdullahi Fuentes M.D. 03/19/2022 7:47 PM Discharge Plan Visit Data Chief Complaint: Dizziness ED Provider: Robi Oliveros Discharge Problem: Atrial fibrillation with RVR Patient Disposition: Admitted As Inpatient Discharge Instructions Interventions: ED Discharge Assessment Last Done: 03/19/22 21:48
[2022-03-19] MEDS ORDERED: dilTIAZem HCl 5 MG/ML 5 ML VIAL IV ONE (18:38)
[2022-03-19 18:41] LABS: Basophils # (auto) 0.01 K/uL (0-0.2); Basophils % (auto) 0.1 %; Eosinophils # (auto) 0.17 K/uL (0-0.5); Eosinophils % (auto) 2.1 %; Hemoglobin 14.3 g/dL (12.0-16.0); Immature Granulocytes # (auto) 0.03 K/uL (0.00-0.02); Immature Granulocytes % (auto) 0.4 %; Lymphocytes # (auto) 2.72 K/uL (1.2-3.4); Lymphocytes % (auto) 32.8 %; Mean Corpuscular Hemoglobin 30.2 pg (25-34); Mean Corpuscular Hgb Conc 34.9 g/dL (32-36); Mean Corpuscular Volume 86.5 fL (80-100); Mean Platelet Volume 10.1 fL (7.4-10.4); Monocytes # (auto) 0.53 K/uL (0.11-0.59); Monocytes % (auto) 6.4 %; Neutrophils # (auto) 4.83 K/uL (1.4-6.5); Neutrophils % (auto) 58.2 %; Platelet Count 180 K/uL (130-400); RDW Coefficient of Variation 12.6 % (11.5-14.5); RDW Standard Deviation 40.2 fL (36.4-46.3); Red Blood Count 4.74 M/uL (4.2-5.4); White Blood Count 8.29 K/uL (4.8-10.8)
--- NOTE | 2022-03-19 18:43 | XRay Report ---
XR chest 1V portable CLINICAL HISTORY: Chest Pain. COMPARISON STUDY: 10/24/2020 TECHNIQUE: 1 view of the chest FINDINGS: Single frontal view of the chest demonstrates the heart to be mildly enlarged. There is a decreased i nspiratory effort with elevation of the hemidiaphragms and crowding of the bronchovascular markings a t the lung bases and centrally. The lungs are clear of alveolar opacities. There is no evidence for p leural effusion. There is no evidence for vascular congestion. There is no acute osseous pathology. IMPRESSION: 1. There is a decreased inspiratory effort with otherwise no acute chest disease. ACT 112: Negative or not required by law. Electronically signed by: Abdullahi Fuentes M.D. 03/19/2022 6:42 PM
[2022-03-19 18:52] LABS: Prothrombin Time 10.3 Seconds (9.0-12.0)
[2022-03-19 18:53] LABS: Partial Thromboplastin Ratio 1.1; Partial Thromboplastin Time 31.5 Seconds (21.0-31.0)
[2022-03-19 18:58] LABS: D Dimer 660 ug/L FEU (0-500)
[2022-03-19 19:08] LABS: Alanine Aminotransferase 17 U/L (7-52); Albumin Globulin Ratio 1.7 (0.9-2); Albumin Level 4.7 gm/dl (3.4-5.0); Alkaline Phosphatase 91 U/L (34-104); Anion Gap 9 (3-11); Aspartate Aminotransferase 19 U/L (13-39); BUN Creatinine Ratio 29.1 (10-20); Bilirubin,Total 0.8 mg/dl (0.2-1.0); Blood Urea Nitrogen 25 mg/dl (6-23); Calcium 9.9 mg/dl (8.5-10.1); Carbon Dioxide 29 mmol/L (21-32); Chloride 104 mmol/L (98-107); Est GFR (African American) 80.5 ml/min; Est GFR (Non-African American) 69.4 ml/min; Globulin 2.8 gm/dl (2.5-4.0); Glucose 84 mg/dl (70-99(Fasting)); Lipase 23 U/L (11-82); Potassium 3.5 mmol/L (3.5-5.1); Sodium 142 mmol/L (136-145); Total Protein 7.5 gm/dl (6.0-8.3)
[2022-03-19 19:12] LABS: Troponin I High Sensitivity 4.8 pg/ml (0-14)
[2022-03-19] MEDS ORDERED: OPTIRAY 320 125ml IV ONE (19:26)
[2022-03-19] MEDS ORDERED: METOPROLOL TARTRATE 1 MG/ML VIAL IV STA (19:36)
--- NOTE | 2022-03-19 19:50 | CT Scan Report ---
CT angio chest PE protocol CLINICAL HISTORY: Rapid atrial fibrillation COMPARISON STUDY: Portable chest from 03/19/2022 CT DOSE: 298.43 mGy.cm TECHNIQUE: CT Angio of the chest was performed.followed by image post processing with coronal, and s agittal MIP reformats. Contrast Volume: Optiray 320, 120 ml FINDINGS: Vasculature: There is homogeneous perfusion of the pulmonary vasculature bilaterally. No intraluminal filling defects or evidence for pulmonary embolus is seen. Airway: The airway is clear. No endobronchial lesion is identified. Lungs: The lungs are clear of acute alveolar opacities, air bronchograms or pulmonary nodules. Pleura: There is no evidence for pleural effusion. There is no evidence for pneumothorax. Mediastinum: There is no evidence for pathologic adenopathy. The heart size is within normal limits. The thoracic aorta is within normal limits. There is no evidence for pericardial effusion. Upper abdomen:The adrenal glands are normal bilaterally. Osseous structures: There is no acute osseous pathology. Impression: 1. No CTA evidence for pulmonary embolus. 2. No acute chest disease. ACT 112: Negative or not required by law. Electronically signed by: Abdullahi Fuentes M.D. 03/19/2022 7:47 PM
--- NOTE | 2022-03-19 20:32 | History & Physical Report ---
Date of Service March 19, 2022 Assessment & Plan (1) Atrial fibrillation with RVR: Plan: - New onset this evening, with associated palpitations, shortness of breath, dizziness. After receiving IVF, diltiazem, and metoprolol in ED, patient states her symptoms resolved. Still appears to be in afib with HR 100-110s. - As patient is already on metoprolol 50 mg twice daily, will give her evening dose tonight in addition to what she has received in ED and monitor for conv ersion to NSR. - K 3.5, Mg++ 2.1. Replete K with 40 mEq to achieve K > 4.0. - Echo in AM, consult cardiology for further recommendations regarding medication management. - Will start on Eliquis 5mg BID. - Follow electrolytes on AM labs. - TSH with reflex T4 pending. (2) Abnormal stress echo: Plan: - Presumed CAD. Stress echo in June 2021 revealed mild inferior exercise- induced hypokinesis, negative EKG, resting LVEF 55-65%, no valve abnormalities. - Follows with Dr. Wisdom. - Continue on baby aspirin, statin, metoprolol. (3) RLS (restless legs syndrome): Plan: - Continue ropinirole 1 mg twice daily. (4) Mood disorder: Plan: - Continue citalopram 10 mg daily. (5) Hyperlipidemia: Plan: - Continue atorvastatin 20 mg daily. Plan: - Admit to PCU. - SCDs, Eliquis for VTE PPx. - Full code. History of Present Illness Chief Complaint: acute onset of dizziness, palpitations, SOB this evening Primary Care Provider: Stanley Coleman DO Brenna Steiner is a 66-year-old female with a past medical history significant for hyperlipidemia, depression, and RLS presents tonight with onset of palpitations and dizziness. 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 She presented to ED for further evaluation. She has never experienced this before, metoprolol 50mg twice daily for slightly a normal stress echo this past fall, otherwise no cardiac history. She had previously been feeling well for the past few days, no fever/chills, chest pain, shortness of breath, or palpitations. Labs largely unremarkable, electrolytes wnl, no evidence of infectious process, initial hs Trop 4.8. D dimer 660, CTA without evidence of PE. Patient initially presented with a heart rate of 152, in ED she was given 5 mg of IV metoprolol, as well as 25 mg IV diltiazem. Also received 1L NS bolus. HR now 100-110. Allergies Allergy/AdvReac Type Severity Reaction Status Date / Time Penicillins Allergy Mild FEVER Verified 03/19/22 19:23 Home Medications Medication Instructions Recorded Confirmed Type calcium carbonate 600 mg calcium 600 mg PO QAM 08/10/18 03/19/22 History (1,500 mg) tablet (Calcium) cholecalciferol (vitamin D3) 10 2,000 unit PO QAM #90 cap 05/25/20 03/19/22 Rx mcg (400 unit) capsule (Vitamin D3) aspirin 81 mg tablet,delayed 81 mg PO DAILY 09/18/20 03/19/22 History release ropinirole 1 mg tablet 1 mg PO BID #180 tab 04/10/21 03/19/22 Rx metoprolol tartrate 50 mg tablet 50 mg PO BID #180 tab 11/20/21 03/19/22 Rx citalopram 10 mg tablet 10 mg PO DAILY #90 tab 11/30/21 03/19/22 Rx atorvastatin 20 mg tablet 20 mg PO DAILY #90 tab 01/10/22 03/19/22 Rx apixaban 5 mg tablet (Eliquis) 5 mg PO BID 30 Days #60 tab 03/20/22 Rx Past Med/Surg History Medical History (Updated 03/19/22 @ 23:43 by Robi Olievros DO) Blepharitis of both eyes RESOLVED COVID-19 Glaucoma Mood disorder Nephrolithiasis RLS (restless legs syndrome) Vitamin D deficiency Surgical History History of cataract surgery right History of dilatation and curettage History of right breast biopsy benign Family History Grandmother (Maternal) Diabetes Brother Diabetes Sister Diabetes Breast cancer Other No family history of adverse response to anesthesia Social History (Updated 05/22/21 @ 11:02 by Sonam Hankins) Smoking Status: Never smoker Second Hand Exposure: No; Hx Alcohol Use: No Hx Substance Use: No Preferred Language: Albanian Communication Ability: Effective Visual Impairment: Limited Hearing Ability: Normal Consulting Sme Required: No Beliefs That Will Affect Care: None marital status: Current Living Situation: Spouse current occupational status: employed How many Children do You have: 2 Feels Safe at Home: Yes Childhood Exposure to Second-Hand Smoke: Yes caffeine: Yes Dental Care, Regularly: No Physical Activity Frequency: Does not Exercise Seatbelt Use: always Sunscreen Use: Yes Do you think of yourself as: straight/heterosexual Assistive Devices: None Review of Systems Review of Systems: Constitutional: dizziness this evening; No fever/chills, weakness, fatigue, myalgias, anorexia, night sweats Eyes: No diplopia, no worsening or blurred vision ENT: normal hearing, no trouble swallowing Respiratory: SOB this evening; No cough, sputum production Cardiovascular: Palpitations this evening; No chest pain/tightness Abdomen: No pain, nausea, vomiting, diarrhea or constipation : Denies dysuria, hematuria, increased urgency/frequency, urinary retention Musculoskeletal: No joint pain, calf pain, swelling Neurologic: No weakness, numbness/tingling, or balance problems Psychiatric: No anxiety or depression Skin: No rash or itch Physical Exam Physical Exam: General: awake, alert, no apparent distress Head: Normocephalic, atraumatic ENT: PERRL, EOMI, no pharyngeal exudate, mucous membranes moist Chest: Clear to auscultation, on room air, no adventitious breath sounds Cardiac: irregularly irregular rhythm consistent with afib; no murmur, no JVD, normal peripheral pulses, good capillary refill Abdominal: NABS x 4 quadrants, soft, nontender to palpation, no rebound, guarding or tenderness Extremities: Normal inspection, no peripheral edema or erythema, calfs nontender to palpation Psych: Normal mood and affect Neuro: AAO x 3, strength intact bilaterally and rated 5/5, no motor deficits, speech is clear, no peripheral sensory deficits Skin: no rash or erythema Results & Data Results & Data ([facility]) Vital Signs (Past 12 Hours) Vital Signs Temp Pulse Pulse Resp BP BP Pulse Ox 03/19/22 20:15 107 H 16 113/81 97 03/19/22 20:00 103 H 18 170/71 H 97 03/19/22 19:59 116 H 16 98 03/19/22 19:46 97 H 16 138/63 97 03/19/22 19:40 98 H 119/68 03/19/22 18:55 100 H 20 119/76 100 03/19/22 18:22 37.0 C 152 H 22 164/139 H 98 Laboratory Results Abnormal lab results 03/19/22 03/19/22 03/19/22 Range/Units 16:29 16:29 16:29 Immature Gran # (Auto) 0.03 H (0.00-0.02) K/uL APTT 31.5 H (21.0-31.0) Seconds D-Dimer 660 H* (0-500) ug/L FEU BUN 25 H (6-23) mg/dl BUN/Creatinine Ratio 29.1 H (10-20) Diagnostic Findings Chest X-Ray 03/19/22 18:30 XR chest 1V portable CLINICAL HISTORY: Chest Pain. COMPARISON STUDY: 10/24/2020 TECHNIQUE: 1 view of the chest FINDINGS: Single frontal view of the chest demonstrates the heart to be mildly enlarged. There is a decreased inspiratory effort with elevation of the hemidiaphragms and crowding of the bronchovascular markings at the lung bases and centrally. The lungs are clear of alveolar opacities. There is no evidence for pleural eff usion. There is no evidence for vascular congestion. There is no acute osseous pathology. IMPRESSION: 1. There is a decreased inspiratory effort with otherwise no acute chest disease. ACT 112: Negative or not required by law. Electronically signed by: Abdullahi Fuentes M.D. 03/19/2022 6:42 PM Chest CTA 03/19/22 19:00 CT angio chest PE protocol CLINICAL HISTORY: Rapid atrial fibrillation COMPARISON STUDY: Portable chest from 03/19/2022 CT DOSE: 298.43 mGy. TECHNIQUE: CT Angio of the chest was performed.followed by image post processing with coronal, and sagittal MIP reformats. Contrast Volume: Optiray 320, 120 ml FINDINGS: Vasculature: There is homogeneous perfusion of the pulmonary vasculature bilaterally. No intraluminal filling defects or evidence for pulmonary embolus is seen. Airway: The airway is clear. No endobronchial lesion is identified. Lungs: The lungs are clear of acute alveolar opacities, air bronchograms or pul monary nodules. Pleura: There is no evidence for pleural effusion. There is no evidence for pneumothorax. Mediastinum: There is no evidence for pathologic adenopathy. The heart size is within normal limits. The thoracic aorta is within normal limits. There is no evidence for pericardial effusion. Upper abdomen:The adrenal glands are normal bilaterally. Osseous structures: There is no acute osseous pathology. Impression: 1. No CTA evidence for pulmonary embolus. 2. No acute chest disease. ACT 112: Negative or not required by law. Electronically signed by: Abdullahi Fuentes M.D. 03/19/2022 7:47 PM ECG Additional Comments: Atrial fibrillation with rapid ventricular response Marked ST abnormality, possible inferior subendocardial injury Abnormal ECG When compared with ECG of 19-MAR-2022 18:28, (unconfirmed) Atrial fibrillation has replaced Sinus rhythm T wave inversion now evident in Inferior leads Nonspecific T wave abnormality now evident in Lateral leads. Code Status & VTE Plan Code Status Full Code. Supervising Physician Co-Signing Physician Notes Attending addendum: I have physically seen this patient, have supervised the LUIS's activities, and agree with the H&P unless as otherwise noted. Assessment and Plan: New onset atrial fibrillation with RVR/CAD/hypertension- The patient will be admitted to telemetry for serial cardiac enzymes, serial EKG's, cardiac rhythm monitoring and a 2-D echocardiogram with Dopplers. Potassium 3.5, will optimize to target 4.0 or greater Starting Eliquis 5 mg p.o. twice daily Follow serial electrolytes TSH/free T4 pending Consult her credit compliance officer Dr. Wisdom Remaining orders and notations as noted PG Care Time/CCT Total # of Minutes Spent Total Time Spent with Patient: Total time spent is greater than 50% in coordination of care (as documented) at patient's floor/unit and/or counseling patient: Coding Level of Care Code 82844 Initial Inpt Care Lvl 2 Diagnoses Atrial fibrillation with RVR I48.91 RLS (restless legs syndrome) G25.81 Mood disorder F39 Abnormal stress echo R94.39 Hyperlipidemia E78.5
[2022-03-19] MEDS ORDERED: POTASSIUM CHLORIDE CRTAB 20 MEQ TABCR PO STA (21:02)
[2022-03-19 21:50] LABS: Thyroid Stimulating Hormone 11.056 uIu/ml (0.300-4.500)
[2022-03-19] MEDS ORDERED: POLYETHYLENE (MIRALAX) 17 GM PACK PO PRN (22:14)
[2022-03-19] MEDS ORDERED: ONDANSETRON INJ 2 MG/ML 2 ML VIAL IV PRN (22:14)
[2022-03-19] MEDS ORDERED: METOPROLOL TARTRATE 1 MG/ML VIAL IV PRN (22:14)
[2022-03-19] MEDS ORDERED: METOPROLOL TARTRATE 50 MG TAB PO SCH (22:14)
[2022-03-19 22:30] LABS: T4 Free Thyroxine 0.67 ng/dl (0.61-1.60)
[2022-03-19] MEDS ORDERED: METOPROLOL TARTRATE 25 MG TAB PO STA (22:49)
[2022-03-19] MEDS ORDERED: LEVOTHYROXINE SODIUM 25 MCG TABLET PO STA (22:49)
--- NOTE | 2022-03-19 22:58 | Communication Note ---
Date of Service: March 19, 2022 Notified by nursing that patient converted from afib to NSR 1st deg AV block HR 70s. TSH 11.056. Ordering now dose metoprolol tartrate PO 25mg and now dose leveothyroxine 25mcg for subclinical hypothyroidism in context of afib.
[2022-03-20 06:19] LABS: Basophils # (auto) 0.02 K/uL (0-0.2); Basophils % (auto) 0.3 %; Eosinophils # (auto) 0.13 K/uL (0-0.5); Hematocrit (blood only) 38.9 % (37-47); Hemoglobin 13.3 g/dL (12.0-16.0); Immature Granulocytes # (auto) 0.03 K/uL (0.00-0.02); Immature Granulocytes % (auto) 0.5 %; Lymphocytes # (auto) 1.75 K/uL (1.2-3.4); Lymphocytes % (auto) 27.1 %; Mean Corpuscular Hemoglobin 30.1 pg (25-34); Mean Corpuscular Hgb Conc 34.2 g/dL (32-36); Mean Platelet Volume 10.2 fL (7.4-10.4); Monocytes # (auto) 0.48 K/uL (0.11-0.59); Monocytes % (auto) 7.4 %; Neutrophils # (auto) 4.04 K/uL (1.4-6.5); Neutrophils % (auto) 62.7 %; Platelet Count 177 K/uL (130-400); RDW Coefficient of Variation 12.9 % (11.5-14.5); RDW Standard Deviation 41.8 fL (36.4-46.3); Red Blood Count 4.42 M/uL (4.2-5.4); White Blood Count 6.45 K/uL (4.8-10.8)
[2022-03-20 06:40] LABS: Troponin I High Sensitivity 7.3 pg/ml (0-14)
[2022-03-20 06:56] LABS: BUN Creatinine Ratio 23.9 (10-20); Calcium 9.6 mg/dl (8.5-10.1); Creatinine Clr Calc Pharmacy 75.5 ml/min; Est GFR (African American) 101.4 ml/min; Est GFR (Non-African American) 87.5 ml/min; Magnesium 2.1 mg/dl (1.7-2.4); Potassium 4.9 mmol/L (3.5-5.1)
[2022-03-20] MEDS: rOPINIRole HCL 1 MG TABLET PO SCH ×2 (08:45)
[2022-03-20] MEDS: APIXABAN 5 MG TABLET PO SCH ×2 (08:45)
[2022-03-20] MEDS ORDERED: CALCIUM 600MG + VIT D 400 IU TAB PO SCH (09:00)
[2022-03-20] MEDS ORDERED: CITALOPRAM 20 MG TAB PO SCH (09:00)
[2022-03-20] MEDS ORDERED: ASPIRIN 81 MG ECTAB PO SCH (09:00)
[2022-03-20] MEDS ORDERED: ATORVASTATIN 20 MG TAB PO SCH (09:00)
[2022-03-20] MEDS ORDERED: PNEUMOCOCCAL POLYSACCHARIDES 25 MCG/0.5 ML VIAL/SYR IM ONE (09:00)
[2022-03-20] MEDS ORDERED: METOPROLOL TARTRATE 50 MG TAB PO SCH ×2 (09:00→09:14)
[2022-03-20] MEDS ORDERED: CHOLECALCIFEROL 1,000 UNITS 25 MCG TAB PO SCH (09:00)
--- NOTE | 2022-03-20 11:57 | XCELERA ---
[id number]
--- NOTE | 2022-03-20 13:59 | Discharge Summary ---
Date of Service March 20, 2022 Admission HPI Per Admitting Provider Brenna Steiner is a 66-year-old female with a past medical history significant for hyperlipidemia, depression, and RLS presents tonight with onset of palpitations and dizziness. 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 She presented to ED for further evaluation. She has never experienced this before, metoprolol 50mg twice daily for slightly a normal stress echo this past fall, otherwise no cardiac history. She had previously been feeling well for the past few days, no fever/chills, chest pain, shortness of breath, or palpitations. Labs largely unremarkable, electrolytes wnl, no evidence of infectious process, initial hs Trop 4.8. D dimer 660, CTA without evidence of PE. Patient initially presented with a heart rate of 152, in ED she was given 5 mg of IV metoprolol, as well as 25 mg IV diltiazem. Also received 1L NS bolus. HR now 100-110. Principal Diagnosis Afib w/ RVR Discharge Exam General: in no apparent distress HEENT: NC/AT, EOMI, moist mucous membranes Respiratory: CTA, no adventitious breath sounds Cardiac: RRR. No murmur, no JVD, normal peripheral pulses, good capillary refill Abdominal: soft, nontender to palpation. no guarding Extremities: Normal inspection, no peripheral edema Psych: Normal mood and affect Neuro: awake, AOx3 Discharge Data Allergies Allergy/AdvReac Type Severity Reaction Status Date / Time Penicillins Allergy Mild FEVER Verified 03/19/22 19:23 Consultations 03/19/22 20:40 ED Decision to Admit Stat Ordered Studies Laboratory Results WBC 6.45 K/uL (4.8-10.8) 03/20/22 05:39 RBC 4.42 M/uL (4.2-5.4) 03/20/22 05:39 Hgb 13.3 g/dL (12.0-16.0) 03/20/22 05:39 Hct 38.9 % (37-47) 03/20/22 05:39 MCV 88.0 fL (80-100) 03/20/22 05:39 MCH 30.1 pg (25-34) 03/20/22 05:39 MCHC 34.2 g/dL (32-36) 03/20/22 05:39 RDW Std Deviation 41.8 fL (36.4-46.3) 03/20/22 05:39 RDW Coeff of Rosa 12.9 % (11.5-14.5) 03/20/22 05:39 Plt Count 177 K/uL (130-400) 03/20/22 05:39 MPV 10.2 fL (7.4-10.4) 03/20/22 05:39 Immature Gran % (Auto) 0.5 % 03/20/22 05:39 Neut % (Auto) 62.7 % 03/20/22 05:39 Lymph % (Auto) 27.1 % 03/20/22 05:39 Fergus % (Auto) 7.4 % 03/20/22 05:39 Eos % (Auto) 2.0 % 03/20/22 05:39 Baso % (Auto) 0.3 % 03/20/22 05:39 Neut # (Auto) 4.04 K/uL (1.4-6.5) 03/20/22 05:39 Lymph # (Auto) 1.75 K/uL (1.2-3.4) 03/20/22 05:39 Fergus # (Auto) 0.48 K/uL (0.11-0.59) 03/20/22 05:39 Eos # (Auto) 0.13 K/uL (0-0.5) 03/20/22 05:39 Baso # (Auto) 0.02 K/uL (0-0.2) 03/20/22 05:39 Immature Gran # (Auto) 0.03 K/uL (0.00-0.02) H 03/20/22 05:39 PT 10.3 Seconds (9.0-12.0) 03/19/22 16:29 INR 1.0 (0.9-1.1) 03/19/22 16:29 APTT 31.5 Seconds (21.0-31.0) H 03/19/22 16:29 PTT Ratio 1.1 03/19/22 16:29 D-Dimer 660 ug/L FEU (0-500) H* 03/19/22 16:29 Sodium 143 mmol/L (136-145) 03/20/22 05:39 Potassium 4.9 mmol/L (3.5-5.1) D 03/20/22 05:39 Chloride 110 mmol/L (98-107) H 03/20/22 05:39 Carbon Dioxide 29 mmol/L (21-32) 03/20/22 05:39 Anion Gap 4 (3-11) 03/20/22 05:39 BUN 17 mg/dl (6-23) 03/20/22 05:39 Creatinine 0.71 mg/dl (0.6-1.2) 03/20/22 05:39 Est Cr Clr Drug Dosing 75.5 ml/min 03/20/22 05:39 Est GFR ( Amer) 101.4 ml/min 03/20/22 05:39 Est GFR (Non-Af Amer) 87.5 ml/min 03/20/22 05:39 BUN/Creatinine Ratio 23.9 (10-20) H 03/20/22 05:39 Glucose 105 mg/dl (70-99(Fasting)) H 03/20/22 05:39 POC Glucose 84 mg/dl (70-99) 03/19/22 18:30 Calcium 9.6 mg/dl (8.5-10.1) 03/20/22 05:39 Magnesium 2.1 mg/dl (1.7-2.4) 03/20/22 05:39 Total Bilirubin 0.8 mg/dl (0.2-1.0) 03/19/22 16:29 AST 19 U/L (13-39) 03/19/22 16:29 ALT 17 U/L (7-52) 03/19/22 16:29 Alkaline Phosphatase 91 U/L (34-104) 03/19/22 16:29 Troponin I High Sens 7.3 pg/ml (0-14) 03/20/22 05:39 Total Protein 7.5 gm/dl (6.0-8.3) 03/19/22 16:29 Albumin 4.7 gm/dl (3.4-5.0) 03/19/22 16:29 Globulin 2.8 gm/dl (2.5-4.0) 03/19/22 16:29 Albumin/Globulin Ratio 1.7 (0.9-2) 03/19/22 16:29 Lipase 23 U/L (11-82) 03/19/22 16:29 TSH 11.056 uIu/ml (0.300-4.500) H 03/19/22 16:29 Free T4 0.67 ng/dl (0.61-1.60) 03/19/22 16:29 SARS-CoV-2, RNA, NAAT NEGATIVE (NEGATIVE) 03/19/22 20:09 Impressions Chest X-Ray 03/19/22 18:30 XR chest 1V portable CLINICAL HISTORY: Chest Pain. COMPARISON STUDY: 10/24/2020 TECHNIQUE: 1 view of the chest FINDINGS: Single frontal view of the chest demonstrates the heart to be mildly enlarged. There is a decreased inspiratory effort with elevation of the hemidiaphragms and crowding of the bronchovascular markings at the lung bases and centrally. The lungs are clear of alveolar opacities. There is no evidence for pleural effusion. There is no evidence for vascular congestion. There is no acute osseous pathology. IMPRESSION: 1. There is a decreased inspiratory effort with otherwise no acute chest disease. ACT 112: Negative or not required by law. Electronically signed by: Abdullahi Fuentes M.D. 03/19/2022 6:42 PM Chest CTA 03/19/22 19:00 CT angio chest PE protocol CLINICAL HISTORY: Rapid atrial fibrillation COMPARISON STUDY: Portable chest from 03/19/2022 CT DOSE: 298.43 mGy.cm TECHNIQUE: CT Angio of the chest was performed.followed by image post processing with coronal, and sagittal MIP reformats. Contrast Volume: Optiray 320, 120 ml FINDINGS: Vasculature: There is homogeneous perfusion of the pulmonary vasculature bilaterally. No intraluminal filling defects or evidence for pulmonary embolus is seen. Airway: The airway is clear. No endobronchial lesion is identified. Lungs: The lungs are clear of acute alveolar opacities, air bronchograms or pulmonary nodules. Pleura: There is no evidence for pleural effusion. There is no evidence for pneumothorax. Mediastinum: There is no evidence for pathologic adenopathy. The heart size is within normal limits. The thoracic aorta is within normal limits. There is no evidence for pericardial effusion. Upper abdomen:The adrenal glands are normal bilaterally. Osseous structures: There is no acute osseous pathology. Impression: 1. No CTA evidence for pulmonary embolus. 2. No acute chest disease. ACT 112: Negative or not required by law. Electronically signed by: Abdullahi Fuentes M.D. 03/19/2022 7:47 PM Hospital Course (1) Atrial fibrillation with RVR: 66 yo female with a PMHx of hyperlipidemia, depression, and RLS presented with onset of palpitations and dizziness. Atrial fibrillation with RVR - New onset with associated palpitations, SOB, dizziness. After receiving IVF, diltiazem, and metoprolol in ED, symptoms resolved. - Continued home dose metoprolol with subsequent spontaneous conversion - Echo (03/20): EF 60-65%, no wall abnormalities, type 1 diastolic dysfunction - Started on Eliquis 5mg BID, cont. home metoprolol - f/u pcp CAD - presumed with stress echo in June 2021: revealed mild inferior exercise- induced hypokinesis, negative EKG, resting LVEF 55-65%, no valve abnormalities. - Follows with Dr. Wisdom. - Continue on baby aspirin, statin, metoprolol. RLS (restless legs syndrome) - Continue ropinirole 1 mg twice daily Mood disorder - Continue citalopram 10 mg daily. Hyperlipidemia - Continue atorvastatin 20 mg daily (2) Hyperlipidemia: (3) Abnormal stress echo: (4) Mood disorder: (5) RLS (restless legs syndrome): Total Time Total Time Spent Total Time Spent (In Minutes): <30 Discharge Plan Discharge Items Patient Disposition: Home - Self-Care Reason For Visit: AFIB WITH RVR Discharge Diagnosis: Afib w/ RVR Activity: Resume your previous activity Non-emergency contact: Primary Care Provider and Human Resources Benefits Administrator Call non-emergency contact if: you have any medication questions and your symptoms worsen Follow-up/Referrals: Stanley Coleman, [Primary Care Provider] - 04/01/22 11:30 am (Please follow up with Dr. Coleman on Friday04/01/22 at 11:30 am. Please arrive to the office at 11:15 am for your appointment. If you are unable to keep this appointment, please call the office to reschedule at [phone].) Diet: Regular Addtl Attending Provider Instructions: You presented to the hospital with palpitations and was found to be in atrial fibrillation a rapid heartbeat. You were treated with medications to lower your heart rate as well as started on a medication, Eliquis, which is a blood thinner that is used in this situation to reduce your risk of stroke secondary to atrial fibrillation. On discharge you were back into a normal sinus rhythm. We also performed an echocardiogram which was unremarkable and similar to to the one taken in the past. We have provided you a document with your discharge instructions that goes a little bit more into detail about atrial fibrillation in general. The only additional medication that will be started for you upon discharge is Eliquis 5 mg twice daily which has been sent to your pharmacy. Otherwise you are to continue your home medications, which includes metoprolol, a medication that will help to keep your heart rate in normal range. You should follow-up with your primary care provider in the next week or two who can further explain this diagnosis in detail. Pending Studies at Discharge: No Stand-Alone Forms: [facility] [employer], Smoking Cessation Medications and DC Order Prescriptions: New Eliquis 5 mg Tablet 5 mg PO BID 30 Days Qty: 60 RF: 0 Continued cholecalciferol (vitamin D3) [Vitamin D3] 10 mcg (400 unit) capsule 2,000 unit PO QAM Qty: 90 RF: 3 ropinirole 1 mg tablet 1 mg PO BID Qty: 180 RF: 3 metoprolol tartrate 50 mg tablet 50 mg PO BID Qty: 180 RF: 3 citalopram 10 mg tablet 10 mg PO DAILY Qty: 90 RF: 2 atorvastatin 20 mg tablet 20 mg PO DAILY Qty: 90 RF: 3 calcium carbonate [Calcium 600] 600 mg calcium (1,500 mg) Tablet 600 mg PO QAM RF: 0 aspirin 81 mg Tablet,Delayed Release (Dr/Ec) 81 mg PO DAILY RF: 0 Discharge Orders: Discharge Order (Routine); Ordered 03/20/22 Ordered By: Mulugeta Casas/Other Patient Handouts: AFib Admission Data Admit Date/Time: 03/19/22 20:59 Attending Provider: Mo Galarza Admit Provider: Chance Winter Primary Care Provider: Stanley Coleman Other Providers: Chance Winter Other Interventions: Discharge Summary Assessment (RN) Last Done: 03/20/22 15:17 Supervising Physician Co-Signing Physician Notes I personally examined the patient and verified all dwyer points of history and exam, discussed case, and agree with decision making with Dr Mary. Feeling better. Feeling up to going home. Explained A. fib and management in detail. Answered all questions to the best my ability and her satisfaction. Vitals noted, in general she is awake alert pleasant no distress. HEENT normocephalic atraumatic mucous membranes moist. Breathing unlabored no accessory muscle use good effort. Skin shows no rashes no pallor or icterus. Sinus rhythm heart rate about 60 on the monitor. No focal neurodeficits. New onset A. fibrate now controlled/converted back to sinus rhythm. Given that her rates are now at about 60, I am not compelled to increase her metoprolol. Start Eliquis for stroke prophylaxis. Outlined extensively. Close outpatient follow-up. Stable for home. Previously mildly abnormal stress testvery reassuring that she was in RVR with no troponin elevation and no wall motion abnormality. Elevated TSHwith normal free [id number] certainly a temporary/transient elevation in the context of her A. fib RVR. Outpatient follow-up. Stable from, otherwise as above Resident Activity Tracking Resident Involvement: Resident Care Provided Care Provided: Adult Hospital Medicine
--- NOTE | 2022-03-20 18:18 | Billing Data ---
Date of Service March 20, 2022 Coding Level of Care Code D/C DAY MANAGEMENT <30 MINS
--- NOTE | 2022-03-20 20:21 | Billing Data ---
Date of Service March 20, 2022 Coding Level of Care Code 75486 Initial Inpt Care Lvl 3
--- NOTE | 2022-03-20 22:06 | Electrocardiogram Report ---
Test Reason : Blood Pressure : / mmHG Vent. Rate : 108 BPM Atrial Rate : 108 BPM P-R Int : 186 ms QRS Dur : 070 ms QT Int : 344 ms P-R-T Axes : 055 -11 027 degrees QTc Int : 462 ms Sinus tachycardia with Premature supraventricular complexes Nonspecific ST abnormality Abnormal ECG When compared with ECG of 25-SEP-2020 11:03, Premature supraventricular complexes are now Present Vent. rate has increased BY [address] now depressed in Inferior leads Confirmed by Ian Brown ([id number]) on 03/20/2022 10:05:58 PM Referred By: REFERRED SELF Confirmed By:Ian Brown
--- NOTE | 2022-03-20 22:07 | Electrocardiogram Report ---
Test Reason : Blood Pressure : / mmHG Vent. Rate : 133 BPM Atrial Rate : 119 BPM P-R Int : 000 ms QRS Dur : 068 ms QT Int : 328 ms P-R-T Axes : 000 002 217 degrees QTc Int : 488 ms Atrial fibrillation with rapid ventricular response Marked ST abnormality, possible inferior subendocardial injury Abnormal ECG When compared with ECG of 19-MAR-2022 18:28, Atrial fibrillation has replaced Sinus rhythm T wave inversion now evident in Inferior leads Nonspecific T wave abnormality now evident in Lateral leads Confirmed by Ian Brown ([id number]) on 03/20/2022 10:07:21 PM Referred By: REFERRED SELF Confirmed By:Ian Brown
--- NOTE | 2022-03-20 22:46 | Electrocardiogram Report ---
Test Reason : Blood Pressure : / mmHG Vent. Rate : 063 BPM Atrial Rate : 063 BPM P-R Int : 210 ms QRS Dur : 072 ms QT Int : 434 ms P-R-T Axes : 024 -05 036 degrees QTc Int : 444 ms Sinus rhythm with 1st degree A-V block Otherwise normal ECG When compared with ECG of 19-MAR-2022 18:37, Sinus rhythm has replaced Atrial fibrillation Vent. rate has decreased BY [address] no longer depressed in Inferior leads T wave inversion no longer evident in Inferior leads Confirmed by Ian Brown ([id number]) on 03/20/2022 10:46:37 PM Referred By: REFERRED SELF Confirmed By:Ian Brown
== END 2022-03-20 15:45 | disposition home or self-care (01) | DRG 310 ==
LOC: ED 18:22 → INTOOBSV 20:59 → SUATTDRO 20:59 → 2S 20:59

== ENCOUNTER 2025-03-13 13:14 | Observation (INO) ==
[2025-03-13] MEDS: SODIUM CHLORIDE 0.9% 500 ML IV SCH (13:28)
--- NOTE | 2025-03-13 13:35 | Emergency Department Note ---
Impression & Plan Syncope, Atrial fibrillation, Anticoagulated, Hypotension ED Provider Note NAME: SHERI LARIOS AGE: 69 SEX: F : 1955 ARRIVES VIA: Ambulance INFORMANT: [Patient][ems] ED PROVIDER(S): [Chandu Lynch MD] CHIEF COMPLAINT: Syncope HISTORY OF PRESENT ILLNESS: The patient is a 69-year-old female who presents by ambulance after a syncopal event. She has A-fib and is on Eliquis. Last evening, her heart rate was in the 140s for a short time and then resolved. She felt a bit dizzy last evening with the faster heart rate and had palpitations. The patient states that today, she felt well. She went to gnosticism. She returned from gnosticism and was sitting. She was trying to find a phone that was lost in the furniture, she turned quickly and felt very dizzy and, apparently passed out. She was sitting when she passed out. As per the family, there was some generalized shaking and she was unconscious for about 4 minutes. When she awoke, her vision was blurry but then quickly returned to normal. The patient denies any chest pain or dyspnea with the event today. She did not feel her heart race with the event today. She has not had nausea or vomiting. There has been no abdominal pain. She has not had urinary complaints. She has no history of previous syncope. PMHx/PSHx/Social Hx: See Below PHYSICAL EXAM: GENERAL: Patient is in no acute distress. HEENT: No acute trauma, normocephalic atraumatic, mucous membranes moist, no nasal congestion. NECK: No stridor, no adenopathy, no meningismus, trachea is midline. LUNGS: Clear to auscultation bilaterally, no wheeze, no rhonchi, breath sounds equal. HEART: Without murmurs gallops or rubs, regular rate and rhythm. ABDOMEN: Soft, nontender, no peritonitis. EXTREMITIES: No cyanosis, full range of motion of all the joints without pain or difficulty. NEUROLOGIC: Oriented x 3, no acute motor or sensory deficits, no focal weakness. SKIN: No jaundice, no diaphoresis. DIFFERENTIAL DIAGNOSIS: Dysrhythmia, seizure, vasovagal syncope, dehydration, UTI, anemia, KS, among others. EMERGENCY DEPARTMENT PROCEDURES: MEDICAL DECISION MAKING: There is no leukocytosis or concerning anemia. There is a normal platelet count. No coagulopathy. No renal failure or significant electrolyte abnormality. The patient appeared to be in a euthyroid state. No concerning liver enzyme elevation. ECG shows a sinus rhythm, no ST elevation, no dysrhythmia. Cardiac enzyme testing x 1 was not consistent with acute cardiac injury. Chest x-ray showed some cardiomegaly and pulmonary vascular congestion, there was no focal infiltrate. Urinalysis result is still pending. On exam, the patient was without complaints, her rhythm was sinus. She had no focal neurologic findings. During her stay, she did have some lower blood pressure readings. During my second assessment, when talking with her and family, the reading was 90 systolic. The patient was given a 500 cc saline bolus. A second saline bolus of 500 cc was given. I did speak with cardiology. We discussed the case. Certainly, the patient would benefit from monitoring for 24 hours. Cardiology suggested a cardiac echo in the morning. I talked to the patient, I spoke with family. They understand the need for hospitalization. I spoke to case management, the on-call hospitalist was consulted. In short, the cause for the syncope is unclear. Dehydration is a consideration, medication induced hypotension is a consideration, dysrhythmia is a concern. Prior/Outside records/notes reviewed: Today's EMS notes describing her presentation and transport to this hospital. ECG per my interpretation: Indication was syncope. The ECG shows a normal sinus rhythm with a rate of 68. There is no ST elevation, no PVCs. The QTc is 427. Continuous Cardiac Monitoring per my interpretation: An order was placed for continuous cardiac monitoring. The monitor shows a rate of 69 with normal sinus rhythm. Imaging/x-ray results per my interpretation: Chest x-ray shows some cardiomegaly, I see no focal infiltrate or CHF. Chronic Medical/Social conditions affecting care: Advanced age, currently on Eliquis. Care/Management discussed with: Cardiology-Dr. Reyes. Case management and the on-call hospitalist. Level of care consideration(s): After review of the information above and other included data: --I believe the patient requires escalation of care to admission DISPOSITION: Admission Past Med/Surg History Problem List Hypotension (Acute) Anticoagulated (Acute) Atrial fibrillation (Acute) Syncope (Acute) Hypothyroidism Thoracic back pain Abnormal TSH Atrial fibrillation with RVR Paroxysmal A-fib Hyperlipidemia Chronic venous insufficiency Elevated glucose Dyspnea on exertion Mood disorder RLS (restless legs syndrome) Medical History Abnormal stress echo Insomnia Pneumonia due to 2019 novel coronavirus Elevated transaminase level Hypokalemia COVID-19 Nephrolithiasis Vitamin D deficiency Glaucoma Depression Restless leg syndrome Blepharitis of both eyes RESOLVED Surgical History History of cataract surgery History of right breast biopsy History of dilatation and curettage Family History Grandmother (Maternal) Diabetes Brother Diabetes Sister Diabetes Breast cancer Other No family history of adverse response to anesthesia Social History Smoking Status: Never smoker Second Hand Exposure: No; Do You Dip or Chew Tobacco: No; Hx Alcohol Use: No Hx Substance Use: No Preferred Language: Bulgarian Communication Ability: Effective Visual Impairment: Limited Hearing Ability: Normal Bird Tender Required: No Beliefs That Will Affect Care: None marital status: Current Living Situation: Spouse current occupational status: employed How many Children do You have: 2 Feels Safe at Home: Yes Childhood Exposure to Second-Hand Smoke: Yes Diet: regular caffeine: Yes Dental Care, Regularly: No Physical Activity Frequency: Does not Exercise Seatbelt Use: always Sunscreen Use: Yes Do you think of yourself as: straight/heterosexual Assistive Devices: None Allergies Allergies Allergy/AdvReac Type Severity Reaction Status Date / Time Penicillins Allergy Mild FEVER Verified 03/13/25 14:21 Home Meds Home Medications Medication Instructions Recorded Confirmed calcium carbonate (Calcium 600) 600 mg PO QAM 08/10/18 03/13/25 atorvastatin 20 mg tablet 20 mg PO HS 03/13/25 03/13/25 levothyroxine 50 mcg tablet 50 mcg PO HS 03/13/25 03/13/25 ropinirole 1 mg tablet 1 mg PO BID 03/13/25 03/13/25 Previous Rx's Medication Instructions Recorded citalopram 10 mg tablet 10 mg PO DAILY #90 tabs 08/24/24 apixaban 5 mg tablet (Eliquis) 5 mg PO BID 90 days #180 tabs 01/20/25 metoprolol tartrate 50 mg tablet 50 mg PO BID #180 tabs 01/20/25 Results & Data (ED) Vital Signs Vital Signs - 24 hr 03/13/25 13:18 03/13/25 13:29 03/13/25 13:33 Temperature 36.5 C Temperature Source Oral Pulse Rate 69 69 Respiratory Rate 16 Respiratory Effort / Characteristics Non-Labored Spontaneous Respiratory Depth Normal Respiratory Pattern Regular Blood Pressure 120/70 Blood Pressure Mean 86 Pulse Oximetry 94 94 Oxygen Delivery Method Room Air Room Air Sepsis Recent Fever Within 48 Hours No Sepsis New/Unexplained Change in Mental Status N/A Sepsis Action Taken by Nursing No Action Required Home Medications Current Medication List: was personally reviewed by me Laboratory Data Attestation: I reviewed the patient's lab results. 03/13/25 13:20 03/13/25 14:36 Lab Results 03/13/25 03/13/25 Range/Units 13:20 14:36 WBC 6.53 (4.8-10.8) K/ul RBC 4.28 (4.20-5.40) M/uL Hgb 12.8 (12.0-16.0) g/dl Hct 37.9 (37.0-47.0) % MCV 88.6 (80.0-100.0) fL MCH 29.9 (25.0-34.0) pg MCHC 33.8 (32.0-36.0) g/dL RDW Std Deviation 40.4 (36.4-46.3) fL RDW Coeff of Rosa 12.6 (11.5-14.5) % Plt Count 176 (130-400) K/uL MPV 10.9 (9.4-12.4) fL Immature Gran % (Auto) 0.9 % Neut % (Auto) 57.8 % Lymph % (Auto) 29.6 % [place] % (Auto) 10.0 % Eos % (Auto) 1.2 % Baso % (Auto) 0.5 % Neut # (Auto) 3.78 (1.40-6.50) K/uL Lymph # (Auto) 1.93 (1.20-3.40) K/uL [place] # (Auto) 0.65 H (0.11-0.59) K/uL Eos # (Auto) 0.08 (0.00-0.50) K/uL Baso # (Auto) 0.03 (0.00-0.20) K/uL Immature Gran # (Auto) 0.06 (0.01-0.20) K/uL PT 11.2 (9.0-12.0) Seconds INR 1.0 (0.9-1.1) APTT 30 (21-31) Seconds PTT Ratio 1.1 Sodium 142 (136-145) mmol/L Potassium TNP 4.5 Chloride 110 H (98-107) mmol/L Carbon Dioxide 27 (21-32) mmol/L Anion Gap 5 (3-11) BUN 29 H (6-23) mg/dl Creatinine 0.97 (0.6-1.2) mg/dl Est Cr Clr Drug Dosing 51.2 ml/min eGFR 62.47 BUN/Creatinine Ratio 29.9 H (10-20) Glucose 111 H (70-99(Fasting)) mg/dl Calcium 9.8 (8.6-10.3) mg/dl Magnesium 2.0 (1.7-2.4) mg/dl Total Bilirubin 0.6 (0.2-1.0) mg/dl AST TNP 19 ALT 13 (7-52) U/L Alkaline Phosphatase 98 (34-104) U/L Troponin I High Sens 10.6 (0-14) pg/ml Total Protein 6.6 (6.0-8.3) gm/dl Albumin 3.8 (3.4-5.0) gm/dl Globulin 2.8 (2.5-4.0) gm/dl Albumin/Globulin Ratio 1.4 (0.9-2) TSH 3.067 (0.300-4.500) uIu/ml Administered Medications Sodium Chloride (Nss) 500 mls @ 999 mls/hr IV .Q31M ONE Stop: 03/13/25 15:30 Last Admin: 03/13/25 15:08 Dose: 999 mls/hr Documented By: ANASTASIA Discontinued Medications Sodium Chloride (Nss) 500 mls @ 999 mls/hr IV .Q31M JULIO Stop: 03/13/25 14:00 Last Infusion: 03/13/25 14:49 Dose: Infused Documented By: Admin: 03/13/25 13:28 Dose: 999 mls/hr Documented By: KMO Imaging Data Radiologist's Impression: Chest X-Ray 03/13/25 13:23 XR chest 1V portable HISTORY: 69 years-old Female syncope acute syncope COMPARISON: 10/26/2024 TECHNIQUE: AP view of the chest FINDINGS: Cardiac silhouette is enlarged. Pulmonary vascular congestion. Mild hypoinflation without pneumothorax, pleural effusion or airspace consolidation. Bones appear grossly intact. IMPRESSION: Cardiomegaly with pulmonary vascular congestion. ACT 112: Negative or not required by law. The above report was generated using voice recognition software. It may contain grammatical, syntax or spelling errors. Electronically signed by: Yaya Wall M.D. 03/13/2025 1:44 PM Discharge Plan Visit Data Chief Complaint: Syncope ED Provider: Chandu Lynch Discharge Problem: Syncope, Atrial fibrillation, Anticoagulated, Hypotension Patient Disposition: Admitted As Inpatient Condition: Fair Forms Stand Alone Forms: [facility] [employer]rom[employer] Prescriptions Prescriptions: No Action citalopram 10 mg tablet 10 mg PO DAILY Qty: 90 3RF metoprolol tartrate 50 mg tablet 50 mg PO BID Qty: 180 3RF Eliquis 5 mg tablet 5 mg PO BID 90 Days Qty: 180 3RF calcium carbonate [Calcium 600] 600 mg calcium (1,500 mg) Tablet 600 mg PO QAM atorvastatin 20 mg tablet 20 mg PO HS ropinirole 1 mg tablet 1 mg PO BID Rx Instructions: TAKE ONE TABLET BY MOUTH TWICE DAILY levothyroxine 50 mcg tablet 50 mcg PO HS Referrals Referrals: Stanley Coleman DO [Primary Care Provider] - Discharge Problem: Syncope Qualifiers: Syncope type: unspecified Qualified Code(s): R55 - Syncope and collapse Atrial fibrillation Qualifiers: Atrial fibrillation type: unspecified Qualified Code(s): I48.91 - Unspecified atrial fibrillation Hypotension Qualifiers: Hypotension type: unspecified hypotension type Qualified Code(s): I95.9 - Hypotension, unspecified
[2025-03-13 13:44] LABS: Basophils # (auto) 0.03 K/uL (0.00-0.20); Basophils % (auto) 0.5 %; Eosinophils # (auto) 0.08 K/uL (0.00-0.50); Eosinophils % (auto) 1.2 %; Hematocrit (blood only) 37.9 % (37.0-47.0); Hemoglobin 12.8 g/dl (12.0-16.0); Immature Granulocytes # (auto) 0.06 K/uL (0.01-0.20); Immature Granulocytes % (auto) 0.9 %; Lymphocytes # (auto) 1.93 K/uL (1.20-3.40); Lymphocytes % (auto) 29.6 %; Mean Corpuscular Hemoglobin 29.9 pg (25.0-34.0); Mean Corpuscular Hgb Conc 33.8 g/dL (32.0-36.0); Mean Corpuscular Volume 88.6 fL (80.0-100.0); Mean Platelet Volume 10.9 fL (9.4-12.4); Monocytes # (auto) 0.65 K/uL (0.11-0.59); Neutrophils # (auto) 3.78 K/uL (1.40-6.50); Neutrophils % (auto) 57.8 %; Platelet Count 176 K/uL (130-400); RDW Coefficient of Variation 12.6 % (11.5-14.5); RDW Standard Deviation 40.4 fL (36.4-46.3); Red Blood Count 4.28 M/uL (4.20-5.40); White Blood Count 6.53 K/ul (4.8-10.8)
--- NOTE | 2025-03-13 13:47 | XRay Report ---
XR chest 1V portable HISTORY: 69 years-old Female syncope acute syncope COMPARISON: 10/26/2024 TECHNIQUE: AP view of the chest FINDINGS: Cardiac silhouette is enlarged. Pulmonary vascular congestion. Mild hypoinflation without pneumothora x, pleural effusion or airspace consolidation. Bones appear grossly intact. IMPRESSION: Cardiomegaly with pulmonary vascular congestion. ACT 112: Negative or not required by law. The above report was generated using voice recognition software. It may contain grammatical, syntax o r spelling errors. Electronically signed by: Yaya Wall M.D. 03/13/2025 1:44 PM
[2025-03-13 14:17] LABS: Partial Thromboplastin Ratio 1.1; Partial Thromboplastin Time 30 Seconds (21-31); Prothrombin Time 11.2 Seconds (9.0-12.0)
[2025-03-13 14:22] LABS: Alanine Aminotransferase 13 U/L (7-52); Albumin Globulin Ratio 1.4 (0.9-2); Alkaline Phosphatase 98 U/L (34-104); Anion Gap 5 (3-11); BUN Creatinine Ratio 29.9 (10-20); Bilirubin,Total 0.6 mg/dl (0.2-1.0); Blood Urea Nitrogen 29 mg/dl (6-23); Calcium 9.8 mg/dl (8.6-10.3); Carbon Dioxide 27 mmol/L (21-32); Chloride 110 mmol/L (98-107); Creatinine Clr Calc Pharmacy 51.2 ml/min; Globulin 2.8 gm/dl (2.5-4.0); Glucose 111 mg/dl (70-99(Fasting)); Sodium 142 mmol/L (136-145); Thyroid Stimulating Hormone 3.067 uIu/ml (0.300-4.500); Total Protein 6.6 gm/dl (6.0-8.3); Troponin I High Sensitivity 10.6 pg/ml (0-14)
[2025-03-13 15:07] LABS: Potassium 4.5 mmol/L (3.5-5.1)
[2025-03-13] MEDS: SODIUM CHLORIDE 0.9% 500 ML IV ONE (15:08)
--- NOTE | 2025-03-13 16:05 | History & Physical Report ---
Date of Service March 13, 2025 Assessment & Plan (1) Syncope: (2) Atrial fibrillation: Plan This is a 69 year old female with past medical history of A fib, HLD, hypothyroidism, RLS who presented to the ED on 03/13/25 with a syncopal episode. While in the ED she was found to have a stable CBC, CMP. Troponin negative. TSH WNL. EKG was normal sinus rhythm. CXR was w/ cardiomegaly but otherwise negative. She was given 1L NSS. Cardiology was contacted who recommended observing overnight and an echocardiogram. #Syncope w/ LOC after turning head fast to look for phone in couch cushion. Per family was w/o consciousness for ~ 4 minutes but remained breathing. CBC/CMP stable; Troponin negative CXR: cardiomegaly s/p 1L NSS --> recommend gentle fluid rehydration Update echocardiogram Obtain orthostatic VS Recommend outpatient holter monitor PT/OT consulted, appreciate recommendations. #Atrial fibrillation On Eliquis/metoprolol tartrate outpatient. BP remains on lower side while in ED switch tartrate to metoprolol succinate 100mg PO starting this evening w/ hold parameters of SBP < 100 or HR < 60 #Hypothyroidism TSH WNL continue Synthroid #HLD - continue statin #Mental heatlh - continue citalopram #RLS - continue Ropinirole DVT prophylaxis: Eliquis Code: full Case discussed w/ Dr. Shoemaker at time of admission. History of Present Illness Primary Care Provider: Stanley Coleman, This is a 69 year old female with past medical history of A fib, HLD, hypothyroidism, RLS who presented to the ED on 03/13/25 with a syncopal episode. Brenna seen and examined with her family this afternoon. She states that yes terday evening she experienced heart palpitations for about 1.5 hours where she knew that she was in A fib. She states that since she was diagnosed with A fib she has felt herself go into the abnormal rhythm about 3 times. She states she woke up and took her AM medications then ate very little for breakfast & went to sabianist. When returning home, she was sitting down and lost her phone in the couch cushion. She states that she turned her head fast to find it and that is when she passed out. The family states that she lost consciousness for ~ 4 minutes but remained breathing. When she regained consciousness, she was very confused and shaky. Presently, she felt okay. Denied CP, SOB. She states she does have some LE edema which is chronic & not worse for her. Denies abdominal pain, nausea, vomiting. Denies any urinary complaints. She does state that she drinks very little water. States she drinks mostly soda & iced tea. While in the ED she was found to have a stable CBC, CMP. Troponin negative. TSH WNL. EKG was normal sinus rhythm. CXR was w/ cardiomegaly but otherwise negative. She was given 1L NSS. Cardiology was contacted who recommended observing overnight and an echocardiogram. Allergies Allergy/AdvReac Type Severity Reaction Status Date / Time Penicillins Allergy Mild FEVER Verified 03/13/25 14:21 Home Medications Medication Instructions Recorded Confirmed Type calcium carbonate (Calcium 600) 600 mg PO QAM 08/10/18 03/13/25 History citalopram 10 mg tablet 10 mg PO DAILY #90 tabs 08/24/24 03/13/25 Rx apixaban 5 mg tablet (Eliquis) 5 mg PO BID 90 days #180 tabs 01/20/25 03/13/25 Rx metoprolol tartrate 50 mg tablet 50 mg PO BID #180 tabs 01/20/25 03/13/25 Rx atorvastatin 20 mg tablet 20 mg PO HS 03/13/25 03/13/25 History levothyroxine 50 mcg tablet 50 mcg PO HS 03/13/25 03/13/25 History ropinirole 1 mg tablet 1 mg PO BID 03/13/25 03/13/25 History Past Med/Surg History Problem List Hypotension (Acute) Anticoagulated (Acute) Atrial fibrillation (Acute) Syncope (Acute) Hypothyroidism Thoracic back pain Abnormal TSH Atrial fibrillation with RVR Paroxysmal A-fib Hyperlipidemia Chronic venous insufficiency Elevated glucose Dyspnea on exertion Mood disorder RLS (restless legs syndrome) Medical History Abnormal stress echo Insomnia Pneumonia due to 2019 novel coronavirus Elevated transaminase level Hypokalemia COVID-19 Nephrolithiasis Vitamin D deficiency Glaucoma Depression Restless leg syndrome Blepharitis of both eyes RESOLVED Surgical History History of cataract surgery History of right breast biopsy History of dilatation and curettage Family History Grandmother (Maternal) Diabetes Brother Diabetes Sister Diabetes Breast cancer Other No family history of adverse response to anesthesia Social History Smoking Status: Never smoker Second Hand Exposure: No; Do You Dip or Chew Tobacco: No; Hx Alcohol Use: No Hx Substance Use: No Preferred Language: Latvian Communication Ability: Effective Visual Impairment: Limited Hearing Ability: Normal Mult Au Matic Operator Required: No Beliefs That Will Affect Care: None marital status: Current Living Situation: Parent current occupational status: employed How many Children do You have: 2 Other Information That Helps Us Care for You: No Feels Safe at Home: Yes Safety Concerns: Feels Safe At This Time Childhood Exposure to Second-Hand Smoke: Yes Diet: regular caffeine: Yes Dental Care, Regularly: No Physical Activity Frequency: Does not Exercise Seatbelt Use: always Sunscreen Use: Yes Do you think of yourself as: straight/heterosexual Assistive Devices: None Physical Exam Physical Exam: General: no acute distress; non-toxic appearing; well-nourished; cooperative HEENT: normocephalic, atraumatic; no scleral icterus; PERRLA w/ EOMs intact; vision and hearing grossly intact Neck: trachea midline Skin: warm, dry without signs of tenting; no cyanosis; no rashes, bruising, lesions, or erythema noted Lungs: no acute respiratory distress; symmetrical chest wall expansion MSK: mild LE edema Neuro: A&Ox3; normal mood and affect; fluent speech; no focal deficits; sensation grossly intact in the LEs b/l Results & Data Results & Data Vital Signs (Past 12 Hours) Vital Signs Temp Pulse Resp BP Pulse Ox O2 Del Method 03/13/25 15:00 68 21 110/59 L 96 Room Air 03/13/25 13:33 69 03/13/25 13:29 94 Room Air 03/13/25 13:18 36.5 C 69 16 120/70 94 Room Air Supervising Physician Co-Signing Physician Notes During face to face encounter, I obtained a history and physical examination, discussed plan of care with patient and answered any questions. I discussed plan of care with CHARLENE Andres. I reviewed above note and agree with it except for the following: Patient will be admitted for syncope. Possiby orthostatic or vasovagal or due to arrythmia. willmonitor orthostatics and place on conveyor monitor. PG Care Time/CCT Total # of Minutes Spent Total Time Spent with Patient: Total time spent is greater than 50% in coordination of care (as documented) at patient's floor/unit and/or counseling patient: Coding Level of Care Code 68360 INT INP/OBS CARE MIN Diagnoses Syncope R55 Syncope type: unspecified Atrial fibrillation I48.91 Atrial fibrillation type: unspecified (1) Syncope Syncope type: unspecified Qualified Code(s): R55 - Syncope and collapse (2) Atrial fibrillation Atrial fibrillation type: unspecified Qualified Code(s): I48.91 - Unspecified atrial fibrillation
[2025-03-13] MEDS ORDERED: ACETAMINOPHEN 325 MG TAB PO PRN (17:51)
[2025-03-13] MEDS ORDERED: ONDANSETRON INJ 2 MG/ML 2 ML VIAL IV PRN (17:51)
[2025-03-13] MEDS ORDERED: POLYETHYLENE (MIRALAX) 17 GM PACK PO PRN (17:51)
[2025-03-13] MEDS ORDERED: MELATONIN 3 MG TAB PO PRN (17:51)
[2025-03-13] MEDS: LACTATED RINGER'S 1,000 ML IV SCH (18:13)
[2025-03-13 18:24] LABS: Appearance Urine Cloudy (Clear); Bacteria Urine Automated 3+ (None Seen); Bilirubin Urine Negative (Negative); Blood Urine Trace (Negative); Color Urine Yellow; Glucose Urine UA Negative (Negative); Ketones Urine Negative (Negative); Leukocyte Esterase Urine 3+ (Negative); Nitrite Urine Negative (Negative); Protein Urine Negative (Negative); RBC Urine Automated 0-2 /hpf (0-2); Specific Gravity Urine 1.019 (1.000-1.030); Urobilinogen Urine Negative (Negative); WBC Urine Automated >50 /hpf (0-5)
[2025-03-13] MEDS: LEVOTHYROXINE SODIUM 50 MCG TABLET PO SCH (20:43)
[2025-03-13] MEDS: APIXABAN 5 MG TABLET PO SCH (20:43)
[2025-03-13] MEDS: ATORVASTATIN 20 MG TAB PO SCH (20:43)
[2025-03-13] MEDS: rOPINIRole HCL 1 MG TABLET PO SCH (20:43)
[2025-03-13] MEDS: METOPROLOL SUCC 50MG EXT REL TAB PO SCH (20:46)
[2025-03-14 04:31] VITALS: RESP 18
[2025-03-14 07:02] LABS: Hematocrit (blood only) 33.9 % (37.0-47.0); Hemoglobin 11.7 g/dl (12.0-16.0); Mean Corpuscular Hemoglobin 30.5 pg (25.0-34.0); Mean Corpuscular Hgb Conc 34.5 g/dL (32.0-36.0); Mean Corpuscular Volume 88.5 fL (80.0-100.0); Mean Platelet Volume 10.5 fL (9.4-12.4); Platelet Count 152 K/uL (130-400); RDW Coefficient of Variation 12.4 % (11.5-14.5); RDW Standard Deviation 39.8 fL (36.4-46.3); Red Blood Count 3.83 M/uL (4.20-5.40); White Blood Count 5.85 K/ul (4.8-10.8)
[2025-03-14 07:19] LABS: BUN Creatinine Ratio 25.9 (10-20); Creatinine Clr Calc Pharmacy 60.9 ml/min; Potassium 4.1 mmol/L (3.5-5.1)
--- NOTE | 2025-03-14 09:22 | Electrocardiogram Report ---
Test Reason : Blood Pressure : */* mmHG Vent. Rate : 68 BPM Atrial Rate : 68 BPM P-R Int : 186 ms QRS Dur : 74 ms QT Int : 402 ms P-R-T Axes : 46 -13 49 degrees QTcB Int : 427 ms Normal sinus rhythm Normal ECG When compared with ECG of 20-Mar-2022 03:25, No significant change was found Confirmed by Timothy Mariscal ([id number]) on 03/14/2025 9:21:44 AM Referred By: REFERRED SELF Confirmed By: Timothy Mariscal
[2025-03-14] MEDS: CITALOPRAM 20 MG TAB PO SCH (10:13)
[2025-03-14] MEDS: CALCIUM CARBONATE 1250MG TAB PO SCH (10:14)
[2025-03-14 11:20] VITALS: BP 118/76; TEMP 98.1; O2SAT 95
--- NOTE | 2025-03-14 14:23 | XCELERA ---
[id number] \\[id number]
--- NOTE | 2025-03-14 15:27 | Discharge Summary ---
Discharge Summary Date of Service March 14, 2025 Principal Dx & Hospital Course #1 = Principal Diagnosis (1) Syncope: (2) Atrial fibrillation: Plan #Syncope This is a 69 year old female with past medical history of A fib, HLD, hypothyroidism, RLS who presented to the ED on 03/13/25 with a syncopal episode. While in the ED she was found to have a stable CBC, CMP. Troponin negative. TSH WNL. EKG was normal sinus rhythm. CXR was w/ cardiomegaly but otherwise negative. She was given 1L NSS. Cardiology was contacted who recommended observing overnight and an echocardiogram. Echo showed borderline pulmonary HTN and borderline RV dilation. No afib on tele while here, or any repeat symptoms. Ortho VS were negative. Discharge home with return precautions, holter monitor and cardiology follow up. #Atrial fibrillation - On Eliquis/metoprolol tartrate outpatient. Will switch to metoprolol succinate. #Hypothyroidism - TSH WNL, continue Synthroid #HLD - continue statin #Mental heatlh - continue citalopram #RLS - continue Ropinirole Dispo: discharge to home today Notes For Next Care Provider Holter monitor ordered, cardiology follow up Medication Changes From Visit none Admission HPI Per Admitting Provider This is a 69 year old female with past medical history of A fib, HLD, hypothyroidism, RLS who presented to the ED on 03/13/25 with a syncopal episode. Brenna seen and examined with her family this afternoon. She states that yesterday evening she experienced heart palpitations for about 1.5 hours where she knew that she was in A fib. She states that since she was diagnosed with A fib she has felt herself go into the abnormal rhythm about 3 times. She states she woke up and took her AM medications then ate very little for breakfast & went to [employer]ae[employer]. When returning home, she was sitting down and lost her phone in the couch cushion. She states that she turned her head fast to find it and that is when she passed out. The family states that she lost consciousness for ~ 4 minutes but remained breathing. When she regained consciousness, she was very confused and shaky. Presently, she felt okay. Denied CP, SOB. She states she does have some LE edema which is chronic & not worse for her. Denies abdominal pain, nausea, vomiting. Denies any urinary complaints. She does state that she drinks very little water. States she drinks mostly soda & iced tea. While in the ED she was found to have a stable CBC, CMP. Troponin negative. TSH WNL. EKG was normal sinus rhythm. CXR was w/ cardiomegaly but otherwise negative. She was given 1L NSS. Cardiology was contacted who recommended observing overnight and an echocardiogram. Discharge Exam General: NAD, VS as above, sitting up in bed, feels well Resp: normal respiratory effort, lungs clear to auscultation CV: RRR, no murmur, Abd: normal bowel sounds, non tender, no hepatosplenomegaly Extremities: Moves all extremities, no edema Neuro: A&O x3, Skin: intact, no lesions noted Discharge Plan Discharge Items Patient Disposition: Home - Self-Care Reason For Visit: SYNCOPE Discharge Diagnosis: syncope Condition on Discharge: Good Activity: Resume your previous activity Driving/Machine Use: No limitations Weightbearing: Full weightbearing Non-emergency contact: Primary Care Provider and Maintenance Foreman Call non-emergency contact if: you have any medication questions, your symptoms worsen and your temperature is above 101 Follow-up/Referrals: Atul Wisdom MD [Physician] - (follow up 6-8 weeks, this should be after monitor is completed. ) Stanley Coleman DO [Primary Care Provider] - (follow up within one week ) Diet: Heart Healthy Addtl Attending Provider Instructions: Ms. Steiner, You were hospitalized after an episode of syncope. It is unclear exactly why this happened. It may have been from dehydration. It could also have been from your heart and changing in to afib. You did not demonstrate any signs of afib while you were here. I have ordered a heart monitor that will be delivered to your house. There will be instructions for use. If you have any further episodes this will catch what your heart is doing during that time. We changed your metoprolol to once a day to prevent lows in Blood pressure that may also cause syncope. You should follow up with cardiology AFTER the monitor is complete. Please call them to schedule so they can get you in in the appropriate time frame (considering how long it will take them to get results from your monitor study). In the meantime, - do not drive or operate machinery if you feel dizzy - make sure you are staying hydrated, especially on the hot days - gatorade, powerade, propel, etc can help - change positions slowly - if you are feeling lightheaded or dizzy, laying down with your legs in the air can help aide blood flow back to your brain and heart I have also attached information about syncope below. Please follow up with your PCP within one week. Activity: You can do normal everyday activities as your body allows. Take rest breaks if you feel tired. Do not overexert. Stop activity if you have pain, shortness of breath or feel dizzy. Follow-up appointments: Make an appointment with your primary care physician within one week of discharge. A copy of this summary will be sent to them. Every time you see your primary care physician, or any other doctor, bring your medication list, and a list of questions. CONTACT YOUR PRIMARY CARE PROVIDER if you experience any of the following: Shortness of breath or difficulty breathing Fevers or chills Feeling tired with normal activity or experiencing dizziness or fainting Difficulty following your treatment plan, or difficulty taking medications CALL 911 OR GO TO THE EMERGENCY DEPARTMENT if you experience any of the following: Severe abdominal pain or nausea/vomiting Severe chest pain, or chest pain that radiates (moves) to your jaw or arm Sudden, severe shortness of breath or difficulty breathing Thank you for allowing us to participate in your care. Pending Studies at Discharge: No Stand-Alone Forms: My [facility] [place], Smoking Cessation Medications and DC Order Prescriptions: New metoprolol succinate 50 mg Tablet Extended Release 24 Hr 100 mg PO QPM Qty: 30 0RF Continued citalopram 10 mg tablet 10 mg PO DAILY Qty: 90 3RF Eliquis 5 mg tablet 5 mg PO BID 90 Days Qty: 180 3RF calcium carbonate [Calcium 600] 600 mg calcium (1,500 mg) Tablet 600 mg PO QAM atorvastatin 20 mg tablet 20 mg PO HS ropinirole 1 mg tablet 1 mg PO BID Rx Instructions: TAKE ONE TABLET BY MOUTH TWICE DAILY levothyroxine 50 mcg tablet 50 mcg PO HS Discontinued metoprolol tartrate 50 mg tablet 50 mg PO BID Qty: 180 3RF Discharge Orders: Discharge Order (Routine); Ordered 03/14/25 Ordered By: Fatmata Casas/Other Patient Handouts: Treating Syncope: Prevention, ED Fainting, Uncertain Cause Admission Data Admit Date/Time: 03/13/25 15:52 Attending Provider: Mann Shoemaker Admit Provider: Bonnie Andres Primary Care Provider: Stanley Coleman Other Providers: Lakia Reyes Hospital Stay Data Consultations 03/13/25 15:05 ED Decision to Admit Stat Pending Results Patient Have Any Pending Studies at Discharge: No Discharge Instructions Given to Patient (Per Discharging Provider) Ms. Steiner, Fortunato were hospitalized after an episode of syncope. It is unclear exactly why this happened. It may have been from dehydration. It could also have been from your heart and changing in to afib. You did not demonstrate any signs of afib while you were here. I have ordered a heart monitor that will be delivered to your house. There will be instructions for use. If you have any further episodes this will catch what your heart is doing during that time. We changed your metoprolol to once a day to prevent lows in Blood pressure that may also cause syncope. You should follow up with cardiology AFTER the monitor is complete. Please call them to schedule so they can get you in in the appropriate time frame (considering how long it will take them to get results from your monitor study). In the meantime, - do not drive or operate machinery if you feel dizzy - make sure you are staying hydrated, especially on the hot days - gatorade, powerade, propel, etc can help - change positions slowly - if you are feeling lightheaded or dizzy, laying down with your legs in the air can help aide blood flow back to your brain and heart I have also attached information about syncope below. Please follow up with your PCP within one week. Activity: You can do normal everyday activities as your body allows. Take rest breaks if you feel tired. Do not overexert. Stop activity if you have pain, shortness of breath or feel dizzy. Follow-up appointments: Make an appointment with your primary care physician within one week of discharge. A copy of this summary will be sent to them. Every time you see your primary care physician, or any other doctor, bring your medication list, and a list of questions. CONTACT YOUR PRIMARY CARE PROVIDER if you experience any of the following: Shortness of breath or difficulty breathing Fevers or chills Feeling tired with normal activity or experiencing dizziness or fainting Difficulty following your treatment plan, or difficulty taking medications CALL 911 OR GO TO THE EMERGENCY DEPARTMENT if you experience any of the following: Severe abdominal pain or nausea/vomiting Severe chest pain, or chest pain that radiates (moves) to your jaw or arm Sudden, severe shortness of breath or difficulty breathing Thank you for allowing us to participate in your care. Total Time Total Time Spent Total Time Spent (In Minutes): Time spent day of discharge 37 minutes including direct patient care, medication reconciliation, documentation, review of labs and images, and coordination of care. Coding Level of Care Code 68015 INP/OBS DISCH >30 MIN Diagnoses Syncope R55 Syncope type: unspecified Atrial fibrillation I48.91 Atrial fibrillation type: unspecified
[2025-03-14 15:36] VITALS: PULSE 69
== END 2025-03-14 16:08 | disposition home or self-care (01) | DRG 312 ==
LOC: SUATTDRO → ED 13:14 → 2N 15:52 → INTOOBSV 15:52 → 2N 17:04